=== PATIENT | female | born 1965 | race Caucasian/White ===

== ENCOUNTER 2018-09-02 11:26 | Observation (INO) | payer BC, OTHER ==
[~2018-09-02] VITALS: Ht 167.6 cm; Wt 77.1 kg
[~2018-09-02 11:26] MED LIST: BACL10TA PO; Celebrex PO; DIAZ5TAB3 PO; IBUP-16 PO; LEVOSTATIN PO; LORA10TA7 PO; LOVA10TA PO; LVT.1T PO; Levothyroxine PO; Lisinopril PO; MELO15TA39 PO; OMEP20CA12 PO; OXYC-272 PO; OXYC1TAB87 PO; PRM25T PO
--- OUTSIDE RECORDS SUMMARY | 2018-09-02 11:43 | XMS REPORT ---
Author Author Migration, Doctor Organization [facility] Address Unknown Phone Unavailable Care Team Providers Care Online Merchandising Specialist Name Role Phone Migration, Doctor Unavailable Unavailable PROBLEMS Type Condition ICD9-CM Code TPO05-ZA Code Onset Dates Condition Status SNOMED Code Problem Counseling on substance use and abuse V65.42 Active 467337915 Problem Headache 784.0 Active 71354933 Problem Encounter for long-term (current) use of other medications V58.69 Active 259778741 Problem Pain in joint, site unspecified 719.40 Active 91295017 Problem Bunion 727.1 Active 071829361 Problem Other specified menopausal and postmenopausal disorder 627.8 Active 983393110 Problem Obesity, unspecified 278.00 Active 449018195 Problem Pain in joint, shoulder region 719.41 Active 111704769 Problem Viral warts, unspecified 078.10 Active 75789115 Problem Pain in joint, ankle and foot 719.47 Active 013584653 Problem Esophageal reflux 530.81 Active 419133833 Problem Acute bronchitis 466.0 Active 01417294 Problem Carbuncle and furuncle of trunk 680.2 Active 96629584 Problem Other diseases of nasal cavity and sinuses 478.19 Active [id number] ALLERGIES No Information ENCOUNTERS Encounter Location Date Diagnosis [place] [address] [address] Feb, [place] [id number] [place] [address] 02 Nov, 2014 Acute renal insufficiency 593.9 [place] [address] [place] [id number] [place] [address] 2174 Nov, Hyperkalemia 276.7 and Acute renal insufficiency 593.9 [place] [address] [place] [id number] [place] [address] 4459 October, Hyperkalemia 276.7 and Acute renal insufficiency 593.9 [place] [address] [id number] [place] [address] October, Diarrhea 787.91 [facility] [place] [facility] [address] [id number] [place] [address] 14 Sep, 2014 [facility] [place] [facility] [address] [id number] [place] [address] Sep, [facility] [place] [facility] [address] [id number] [place] [address] 4531 Aug, [facility] [place] [facility] [address] [id number] [place] [address] 1835 Aug, [facility] [place] [facility] [address] [id number] [place] [address] 1587 May, [facility] [place] [facility] [address] [facility] [id number] [place] [address] 6823 May, [facility] [address] [id number] [place] [address] 8527 May, [facility] [place] [facility] [address] [id number] [place] [address] 7907 May, [facility] [place] [facility] [address] [facility] [id number] [place] [address] 8654 Feb, [facility] [place] [facility] [address] [facility] [id number] [place] [address] 8119 Feb, [facility] [place] [facility] [address] [id number] [address] Feb, [facility] [place] [facility] [address] [id number] [place] [address] 3432 Feb, [facility] [place] [facility] [address] [id number] [place] [address]- 2832 Dec, [facility] [place] [facility] [address] [id number] [place] [address]- 3702 Dec, [facility] [place] [facility] [address] [id number] [address] 7[address] October, [facility] [address] [id number] [place] [address]- 7200 October, [facility] [place] [facility] [address] [id number] [place] [address]- 8932 Aug, [facility] [place] [facility] [address] [id number] [place] [address]- 3338 Aug, [facility] [place] [facility] [address] [id number] [place] [address]- 7063 May, [facility] [place] [facility] [address] [id number] [place] [address]- 1198 May, [facility] [place] [facility] [address] [id number] [place] [address]- 3216 Feb, [facility] [address] [id number] [place] [address]- 3913 Feb, [facility] [place] [facility] [address] [id number] [place] [address]- 8410 Sep, [facility] [address] [id number] [place] [address]- 9759 Jun, [facility] [place] [facility] [address] [id number] [place] [address]- 7447 May, [facility] [place] [facility] [address] [id number] [place] [address]- 5312 May, [facility] [place] [facility] [address] [id number] [place] [address]- 7376 May, [facility] [place] [facility] [address] [id number] [place] [address]- 4837 May, [facility] [place] [facility] [address] [id number] [place] [address]- 2359 Apr, [facility] [place] [facility] [address] [id number] [place] [address]- 8395 Apr, [facility] [place] [facility] [address] [id number] [place] [address] 2546 Apr, [facility] [place] [facility] [address] [id number] [place] [address]- 3452 Apr, [facility] [place] [facility] [address] [id number] [place] [address] 2546 Feb, [facility] [place] [facility] [address] [id number] [place] [address] 2546 Jan, [facility] [place] [facility] [address] [id number] [place] [address]- 2546 Jan, [facility] [place] [facility] [address] [id number] [place] [address]- 9533 Dec, [facility] [place] [facility] [address] [id number] [place] [address]- 7686 Nov, [facility] [place] [facility] [address] [id number] [place] [address]- 6238 Nov, [facility] [address] [id number] [place] [address]- 9714 October, [facility] [place] [facility] [address] [id number] [place] [address]- 3989 Sep, [facility] [place] [facility] [address] [id number] [place] [address]- 2107 Sep, [facility] [place] [facility] [address] [id number] [place] [address]- 2571 Sep, [facility] [place] [facility] [address] [id number] [place] [address]- 4519 Aug, [facility] [place] [facility] [address] [id number] [place] [address]- 5452 Aug, [facility] [place] [facility] [address] [id number] [place] [address] 2546 Aug, [facility] [place] [facility] [address] [id number] [place] [address]- 4345 Aug, [facility] [place] [facility] [address] [id number] [place] [address]- 5374 Aug, [facility] [place] [facility] [address] [id number] [place] [address]- 0272 Aug, [facility] [place] [facility] [address] [id number] [place] [address]- 7842 Jul, [facility] [place] [facility] [address] [id number] [place] [address]- 7616 Jul, [facility] [place] [facility] [address] [id number] [place] [address]- 5765 Jun, [facility] [place] [facility] [address] [id number] [place] [address]- 0200 May, [facility] [place] [facility] [address] [id number] [place] [address]- 6037 Dec, [facility] [place] [facility] [address] [id number] [place] [address]- 8210 Sep, [facility] [place] [facility] [address] [id number] [place] [address]- 2903 Aug, [facility] [place] [facility] [address] [id number] [place] [address]- 7686 Mar, [facility] [place] [facility] [address] [id number], [place] [address]- 2445 Mar, [facility] [place] [facility] [address] [id number] [address]- 1126 15 Aug, 2009 [facility] [place] [facility] [address] [id number] [place] [address]- 0601 Apr, [facility] [place] [facility] [address] [id number] [address]- 4058 16 Mar, 2009 [facility] [place] [facility] [address] [id number] [place] [address]- 2852 16 Mar, 2009 [facility] [place] [facility] [address] [facility] [id number] [place] [address]- 9834 Mar, [facility] [address] [facility] [id number] [place] [address]- 1116 Jan, [facility] [address] [facility] [id number] [place] [address]- 7246 Jan, IMMUNIZATIONS No Known Immunizations SOCIAL HISTORY Never Assessed REASON FOR VISIT EMR-[facility] PLAN OF CARE VITAL SIGNS MEDICATIONS Unknown Medications RESULTS No Results PROCEDURES No Known procedures INSTRUCTIONS MEDICATIONS ADMINISTERED No Known Medications MEDICAL (GENERAL) HISTORY Type Description Date Medical History Hypothyroidism Medical History migraine headaches Medical History hypertension Medical History allergic rhinitis Medical History chronic pain Medical History hyperlipidemia Medical History obesity Medical History gastroesophageal reflux disease (GERD)
--- OUTSIDE RECORDS SUMMARY | 2018-09-02 11:43 | XMS REPORT ---
Author Author Migration, Doctor Organization [facility] Address Unknown Phone Unavailable Care Team Providers Care River Guide Name Role Phone Migration, Doctor Unavailable Unavailable PROBLEMS Type Condition ICD9-CM Code LZL35-MD Code Onset Dates Condition Status SNOMED Code Problem Counseling on substance use and abuse V65.42 Active 709445664 Problem Headache 784.0 Active 95280217 Problem Encounter for long-term (current) use of other medications V58.69 Active 300098138 Problem Pain in joint, site unspecified 719.40 Active 49859711 Problem Bunion 727.1 Active 483438962 Problem Other specified menopausal and postmenopausal disorder 627.8 Active 812038313 Problem Obesity, unspecified 278.00 Active 959740725 Problem Pain in joint, shoulder region 719.41 Active 497544471 Problem Viral warts, unspecified 078.10 Active 01259151 Problem Pain in joint, ankle and foot 719.47 Active 538002160 Problem Esophageal reflux 530.81 Active 244344995 Problem Acute bronchitis 466.0 Active 53946616 Problem Carbuncle and furuncle of trunk 680.2 Active 87115803 Problem Other diseases of nasal cavity and sinuses 478.19 Active 935110128 ALLERGIES No Information ENCOUNTERS Encounter Location Date Diagnosis [place] [address] [address] Feb, [place] [address] [place] [address]- [address] 02 Nov, 2014 Acute renal insufficiency 593.9 [place] [address] [place] [id number] [place] [address]- 9182 Nov, Hyperkalemia 276.7 and Acute renal insufficiency 593.9 [place] [address] [place] [id number] [place] [address]- 3130 October, Hyperkalemia 276.7 and Acute renal insufficiency 593.9 [place] [address] [id number] [place] [address]- 8163 October, Diarrhea 787.91 [facility] [place] [facility] [address] [id number] [place] [address]- 3736 14 Sep, 2014 [facility] [place] [facility] [address] [id number] [place] [address]- 4099 Sep, [facility] [place] [facility] [address] [id number] [place] [address]- 7116 Aug, [facility] [place] [facility] [address] [id number] [place] [address]- 9983 Aug, [facility] [place] [facility] [address] [id number] [place] [address]- 7278 May, [facility] [place] [facility] [address] [facility] [id number] [place] [address]- 8146 May, [facility] [address] [id number] [place] [address]- 7319 May, [facility] [place] [facility] [address] [id number] [place] [address]- 8376 May, [facility] [place] [facility] [address] [facility] [id number] [place] [address]- 8838 Feb, [facility] [place] [facility] [address] [facility] [id number] [place] [address]- 5010 Feb, [facility] [place] [facility] [address] [id number], [place] [address]- 0970 Feb, [facility] [place] [facility] [address] [id number] [place] [address]- 2628 Feb, [facility] [place] [facility] [address] [id number] [place] [address]- 0141 Dec, [facility] [place] [facility] [address] [id number] [place] [address]- 0238 Dec, [facility] [place] [facility] [address] [id number], [place] [address]- 5319 October, [facility] [address] [id number] [place] [address]- 2952 October, [facility] [place] [facility] [address] [id number] [place] [address]- 0930 Aug, [facility] [place] [facility] [address] [id number] [place] [address]- 5273 Aug, [facility] [place] [facility] [address] [id number] [place] [address]- 0018 May, [facility] [place] [facility] [address] [id number] [place] [address]- 2906 May, [facility] [place] [facility] [address] [id number] [place] [address]- 9480 Feb, [facility] [address] [id number] [place] [address]- 0210 Feb, [facility] [place] [facility] [address] [id number] [place] [address]- 9215 Sep, [facility] [address] [id number] [place] [address]- 0353 Jun, [facility] [place] [facility] [address] [id number] [place] [address]- 6748 May, [facility] [place] [facility] [address] [id number] [place] [address]- 0670 May, [facility] [place] [facility] [address] [id number] [place] [address]- 5939 May, [facility] [place] [facility] [address] [id number] [place] [address]- 8376 May, [facility] [place] [facility] [address] [id number] [place] [address]- 2785 Apr, [facility] [place] [facility] [address] [id number] [place] [address]- 4787 Apr, [facility] [place] [facility] [address] [id number] [place] [address] 2546 Apr, [facility] [place] [facility] [address] [id number] [place] [address]- 7260 Apr, [facility] [place] [facility] [address] [id number] [place] [address] 2546 Feb, [facility] [place] [facility] [address] [id number] [place] [address] 2546 Jan, [facility] [place] [facility] [address] [id number] [place] [address]- 2546 Jan, [facility] [place] [facility] [address] [id number] [place] [address]- 7615 Dec, [facility] [place] [facility] [address] [id number] [place] [address]- 2276 Nov, [facility] [place] [facility] [address] [id number] [place] [address]- 6169 Nov, [facility] [address] [id number] [place] [address]- 4401 October, [facility] [place] [facility] [address] [id number] [place] [address]- 4378 Sep, [facility] [place] [facility] [address] [id number] [place] [address]- 5296 Sep, [facility] [place] [facility] [address] [id number] [place] [address]- 2247 Sep, [facility] [place] [facility] [address] [id number] [place] [address]- 4119 Aug, [facility] [place] [facility] [address] [id number] [place] [address]- 8365 Aug, [facility] [place] [facility] [address] [id number] [place] [address] 2546 Aug, [facility] [place] [facility] [address] [id number] [place] [address]- 8193 Aug, [facility] [place] [facility] [address] [id number] [place] [address]- 2237 Aug, [facility] [place] [facility] [address] [id number] [place] [address]- 1044 Aug, [facility] [place] [facility] [address] [id number] [place] [address]- 2086 Jul, [facility] [place] [facility] [address] [id number] [place] [address]- 2167 Jul, [facility] [place] [facility] [address] [id number] [place] [address]- 4654 Jun, [facility] [place] [facility] [address] [id number] [place] [address]- 0448 May, [facility] [place] [facility] [address] [id number] [place] [address]- 5637 Dec, [facility] [place] [facility] [address] [id number] [place] [address]- 0534 Sep, [facility] [place] [facility] [address] [id number] [place] [address]- 5443 Aug, [facility] [place] [facility] [address] [id number] [place] [address]- 1714 Mar, [facility] [place] [facility] [address] [id number], [place] [address]- 6193 Mar, [facility] [place] [facility] [address] [id number], [place] [address]- 8233 15 Aug, 2009 [facility] [place] [facility] [address] [id number] [place] [address]- 0344 Apr, [facility] [place] [facility] [address] [id number], [place] [address]- 1807 16 Mar, 2009 [facility] [place] [facility] [address] [id number] [place] [address]- 9442 16 Mar, 2009 [facility] [place] [facility] [address] [facility] [id number] [place] [address]- 1737 Mar, [facility] [address] [facility] [id number] [place] [address]- 5860 Jan, [facility] [address] [facility] [id number] [place] [address]- 4083 Jan, IMMUNIZATIONS No Known Immunizations SOCIAL HISTORY Never Assessed REASON FOR VISIT [place] [place] OF CARE VITAL SIGNS MEDICATIONS Unknown [...]
--- OUTSIDE RECORDS SUMMARY | 2018-09-02 11:44 | XMS REPORT ---
Author AMARI Hayes [facility] eClinicalWorks Address Unknown Phone Unavailable Care Team Providers Care Children'S Choir Director Name Role Phone AMARI ENAMORADO CP Unavailable Allergies No Known Allergies Problems Problem Type Condition ICD-9 Code Onset Dates Condition Status Problem Headache 784.0 Active Problem Bunion 727.1 Active Problem Esophageal reflux 530.81 Active Problem Pain in joint, shoulder region 719.41 Active Problem Pain in joint, site unspecified 719.40 Active Problem Carbuncle and furuncle of trunk 680.2 Active Problem Viral warts, unspecified 078.10 Active Problem Counseling on substance use and abuse V65.42 Active Problem Encounter for long-term (current) use of other medications V58.69 Active Problem Acute bronchitis 466.0 Active Problem Other diseases of nasal cavity and sinuses 478.19 Active Problem Obesity, unspecified 278.00 Active Problem Other specified menopausal and postmenopausal disorder 627.8 Active Problem Pain in joint, ankle and foot 719.47 Active Medications Medication Code System Code Instructions Start Date End Date Status Dosage Loratadine [facility] [address]-97 10 MG Est Care appt needed for additional refills Feb 09, 2014 take 1 tablet by Oral route 1 time per day take at hs Lisinopril [facility] [address]-69 20 MG Once a day- Est Care appt needed for additonal refills. Feb 09, 2014 1 tablet by Oral route 1 time per day Lovastatin [facility] [address]-48 10 MG Est Care appt needed for additional refills. Feb 09, 2014 1 tablet by Oral route 1 time per day Results No Known Results Summary Purpose eClinicalWorks Submission
--- OUTSIDE RECORDS SUMMARY | 2018-09-02 11:45 | XMS REPORT | Continuity of Care Document ---
Author Author [facility] Address Unknown Phone Unavailable Allergies Active Description Code Type Severity Reaction Onset Reported/Identified Relationship to Patient Clinical Status Yes hydrocodone Drug Allergy N/A N/A 07/24/2008 Yes hydrocodone Drug Allergy 07/24/2008 Yes codeine Drug Allergy N/A N/A 10/01/2008 Yes Penicillins Drug Allergy N/A N/A 10/01/2008 Yes codeine Drug Allergy 10/01/2008 Yes Penicillins Drug Allergy 10/01/2008 Yes Celexa Drug Allergy N/A N/A 09/13/2010 Yes Celexa Drug Allergy 09/13/2010 Yes codeine [id number] Drug Allergy Mild N/A 12/18/2011 Yes Penicillins [id number] Drug Allergy Mild N/A 12/18/2011 Medications There is no data. 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 12/05/2007 AMARI ENAMORADO DO 739.4 NONALLOPATHIC LESIONS OF SACRAL 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 12/05/2007 AMARI ENAMORADO DO 780.79 lethargy 12/05/2007 739.3 NONALLOPATHIC LESIONS OF LUMBAR 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 12/05/2007 739.4 NONALLOPATHIC LESIONS OF SACRAL 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 12/05/2007 780.79 lethargy 12/05/2007 CELSA SANCHEZ APRN 739.3 NONALLOPATHIC LESIONS OF LUMBAR 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 12/05/2007 CELSA SANCHEZ APRN 739.4 NONALLOPATHIC LESIONS OF SACRAL 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 12/05/2007 CELSA SANCHEZ APRN N 780.79 lethargy 12/05/2007 AKASH CASTELLON APRNINA R 739.3 NONALLOPATHIC LESIONS OF LUMBAR 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 12/05/2007 CANDE SAHNI APOLINAR R 739.4 NONALLOPATHIC LESIONS OF SACRAL 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 12/05/2007 CANDE SAHNI APOLINAR R 780.79 lethargy 12/05/2007 ENAMORADO DO, AMARI K 739.3 NONALLOPATHIC LESIONS OF LUMBAR 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 12/05/2007 ENAMORADO DO, AMARI K 739.4 NONALLOPATHIC LESIONS OF SACRAL 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 12/05/2007 ENAMORADO DO, AMARI K 780.79 lethargy 12/05/2007 ENAMORADO DO, AMARI K 739.3 NONALLOPATHIC LESIONS OF LUMBAR 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 12/05/2007 ENAMORADO DO, AMARI K 739.4 NONALLOPATHIC LESIONS OF SACRAL 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 12/05/2007 ENAMORADO DO, AMARI K 780.79 lethargy 12/05/2007 ENAMORADO DO, AMARI K 739.3 NONALLOPATHIC LESIONS OF LUMBAR 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 12/05/2007 ENAMORADO DO, AMARI K 739.4 NONALLOPATHIC LESIONS OF SACRAL 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 12/05/2007 ENAMORADO DO, AMARI K 780.79 lethargy 12/05/2007 ENAMORADO DO, AMARI K 739.3 NONALLOPATHIC LESIONS OF LUMBAR 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9 HYPOTHYROIDISM 05/14/2008 ENAMORADO DO, AMARI K 719.45 Pain In Joint Involving Pelvic Region And Thigh 05/14/2008 ENAMORADO DO, AMARI K 719.45 Pain In Joint Involving Pelvic Region And Thigh 05/14/2008 719.45 Pain In Joint Involving Pelvic Region And Thigh 05/14/2008 CELSA SANCHEZ APRN N 719.45 Pain In Joint Involving Pelvic Region And Thigh 05/14/2008 CANDE SAHNI APOLINAR R 719.45 Pain In Joint Involving Pelvic Region And Thigh 05/14/2008 ENAMORADO DO, AMARI K 719.45 Pain In Joint Involving Pelvic Region And Thigh 05/14/2008 ENAMORADO DO, AMARI K 719.45 Pain In Joint Involving Pelvic Region And Thigh 05/14/2008 ENAMORADO DO, AMARI K 719.45 Pain In Joint Involving Pelvic Region And Thigh 05/14/2008 ENAMORADO DO, AMARI K 719.45 Pain In Joint Involving Pelvic Region And Thigh 10/01/2008 ENAMORADO DO, AMARI K 401.9 ESSENTIAL HYPERTENSION 10/01/2008 ENAMORADO DO, AMARI K 401.9 ESSENTIAL HYPERTENSION 10/01/2008 401.9 ESSENTIAL HYPERTENSION 10/01/2008 SALONI SANCHEZ APRNCY N 401.9 ESSENTIAL HYPERTENSION 10/01/2008 AKASH CASTELLON APRNINA R 401.9 ESSENTIAL HYPERTENSION 10/01/2008 ENAMORADO DO, AMARI K 401.9 ESSENTIAL HYPERTENSION 10/01/2008 ENAMORADO DO, AMARI K 401.9 ESSENTIAL HYPERTENSION 10/01/2008 ENAMORADO DO, AMARI K 401.9 ESSENTIAL HYPERTENSION 10/01/2008 ENAMORADO DO, AMARI K 401.9 ESSENTIAL HYPERTENSION 11/10/2008 ENAMORADO DO, AMARI K 477.9 ALLERGIC RHINITIS 11/10/2008 ENAMORADO DO, AMARI K 477.9 ALLERGIC RHINITIS 11/10/2008 477.9 ALLERGIC RHINITIS 11/10/2008 SALONI SANCHEZ APRNCY N 477.9 ALLERGIC RHINITIS 11/10/2008 CANDE SAHNI APOLINAR R 477.9 ALLERGIC RHINITIS 11/10/2008 ENAMORADO DO, AMARI K 477.9 ALLERGIC RHINITIS 11/10/2008 ENAMORADO DO, AMARI K 477.9 ALLERGIC RHINITIS 11/10/2008 ENAMORADO DO, AMARI K 477.9 ALLERGIC RHINITIS 11/10/2008 ENAMORADO DO, AMARI K 477.9 ALLERGIC RHINITIS 12/02/2008 ENAMORADO DO, AMARI K 782.2 Localized Superficial Swelling Mass Or Lump 12/02/2008 ENAMORADO DO, AMARI K 782.2 Localized Superficial Swelling Mass Or Lump 12/02/2008 782.2 Localized Superficial Swelling Mass Or Lump 12/02/2008 PAUL DRAPER APRN, CELSA N 782.2 Localized Superficial Swelling Mass Or Lump 12/02/2008 AKASH CASTELLON APRNINA R 782.2 Localized Superficial Swelling Mass Or Lump 12/02/2008 ENAMORADO DO, AMARI K 782.2 Localized Superficial Swelling Mass Or Lump 12/02/2008 ENAMORADO DO, AMARI K 782.2 Localized Superficial Swelling Mass Or Lump 12/02/2008 ENAMORADO DO, AMARI K 782.2 Localized Superficial Swelling Mass Or Lump 12/02/2008 ENAMORADO DO, AMARI K 782.2 Localized Superficial Swelling Mass Or Lump 01/18/2009 ENAMORADO DO, AMARI K 338.2 CHRONIC PAIN 01/18/2009 ENAMORADO DO, AMARI K V58.32 Encounter For Removal Of Sutures 01/18/2009 ENAMORADO DO, AMARI K 338.2 CHRONIC PAIN 01/18/2009 ENAMORADO DO, AMARI K V58.32 Encounter For Removal Of Sutures 01/18/2009 338.2 CHRONIC PAIN 01/18/2009 V58.32 Encounter For Removal Of Sutures 01/18/2009 CELSA SANCHEZ APRN N 338.2 CHRONIC PAIN 01/18/2009 CELSA SANCHEZ APRN N V58.32 Encounter For Removal Of Sutures 01/18/2009 APOLINAR CASTELLON APRN R 338.2 CHRONIC PAIN 01/18/2009 AKASH CASTELLON APRNINA R V58.32 Encounter For Removal Of Sutures 01/18/2009 ENAMORADO DO, AMARI K 338.2 CHRONIC PAIN 01/18/2009 ENAMORADO DO, AMARI K V58.32 Encounter For Removal Of Sutures 01/18/2009 ENAMORADO DO, AMARI K 338.2 CHRONIC PAIN 01/18/2009 ENAMORADO DO, AMARI K V58.32 Encounter For Removal Of Sutures 01/18/2009 ENAMORADO DO, AMARI K 338.2 CHRONIC PAIN 01/18/2009 ENAMORADO DO, AMARI K V58.32 Encounter For Removal Of Sutures 01/18/2009 ENAMORADO DO, AMARI K 338.2 CHRONIC PAIN 01/18/2009 ENAMORADO DO, AMARI K V58.32 Encounter For Removal Of Sutures 03/04/2009 ENAMORADO DO, AMARI K 787.01 Nausea With Vomiting 03/04/2009 ENAMORADO DO, AMARI K 787.91 Diarrhea 03/04/2009 ENAMORADO DO, AMARI K V15.05 OTHER PERSONAL HISTORY PRESENTING HAZARDS TO HEALTH, ALLERGY TO OTHER FOODS 03/04/2009 ENAMORADO DO, AMARI K 787.01 Nausea With Vomiting 03/04/2009 ENAMORADO DO, AMARI K 787.91 Diarrhea 03/04/2009 ENAMORADO DO, AMARI K V15.05 OTHER PERSONAL HISTORY PRESENTING HAZARDS TO HEALTH, ALLERGY TO OTHER FOODS 03/04/2009 787.01 Nausea With Vomiting 03/04/2009 787.91 Diarrhea 03/04/2009 V15.05 OTHER PERSONAL HISTORY PRESENTING HAZARDS TO HEALTH, ALLERGY TO OTHER FOODS 03/04/2009 PAUL DRAPER MANAGER PROGRESSIVE CARE, CELSA N 787.01 Nausea With Vomiting 03/04/2009 PAUL DRAPER MANAGER PROGRESSIVE CARE, CELSA N 787.91 Diarrhea 03/04/2009 PAUL JENSENERO MANAGER PROGRESSIVE CARE, CELSA N V15.05 OTHER PERSONAL HISTORY PRESENTING HAZARDS TO HEALTH, ALLERGY TO OTHER FOODS 03/04/2009 CANDE MANAGER PROGRESSIVE CARE, APOLINAR R 787.01 Nausea With Vomiting 03/04/2009 CANDE MANAGER PROGRESSIVE CARE, APOLINAR R 787.91 Diarrhea 03/04/2009 CANDE MANAGER PROGRESSIVE CARE, APOLINAR R V15.05 OTHER PERSONAL HISTORY PRESENTING HAZARDS TO HEALTH, ALLERGY TO OTHER FOODS 03/04/2009 ENAMORADO DO, AMARI K 787.01 Nausea With Vomiting 03/04/2009 ENAMORADO DO, AMARI K 787.91 Diarrhea 03/04/2009 ENAMORADO DO, AMARI K V15.05 OTHER PERSONAL HISTORY PRESENTING HAZARDS TO HEALTH, ALLERGY TO OTHER FOODS 03/04/2009 ENAMORADO DO, AMARI K 787.01 Nausea With Vomiting 03/04/2009 ENAMORADO DO, AMARI K 787.91 Diarrhea 03/04/2009 ENAMORADO DO, AMARI K V15.05 OTHER PERSONAL HISTORY PRESENTING HAZARDS TO HEALTH, ALLERGY TO OTHER FOODS 03/04/2009 ENAMORADO DO, AMARI K 787.01 Nausea With Vomiting 03/04/2009 ENAMORADO DO, AMARI K 787.91 Diarrhea 03/04/2009 ENAMORADO DO, AMARI K V15.05 OTHER PERSONAL HISTORY PRESENTING HAZARDS TO HEALTH, ALLERGY TO OTHER FOODS 03/04/2009 ENAMORADO DO, AMARI K 787.01 Nausea With Vomiting 03/04/2009 ENAMORADO DO, AMARI K 787.91 Diarrhea 03/04/2009 ENAMORADO DO, AMARI K V15.05 OTHER PERSONAL HISTORY PRESENTING HAZARDS TO HEALTH, ALLERGY TO OTHER FOODS 03/19/2009 ENAMORADO DO, AMARI K 780.2 Fainting (syncope) 03/19/2009 ENAMORADO DO, AMARI K 780.2 Fainting (syncope) 03/19/2009 780.2 Fainting ( syncope) 03/19/2009 PAUL DRAPER APRN CELSA N 780.2 Fainting (syncope) 03/19/2009 CANDE PITTMANN, APOLINAR R 780.2 Fainting (syncope) 03/19/2009 ENAMORADO DO, AMARI K 780.2 Fainting (syncope) 03/19/2009 ENAMORADO DO, AMARI K 780.2 Fainting (syncope) 03/19/2009 ENAMORADO DO, AMARI K 780.2 Fainting (syncope) 03/19/2009 ENAMORADO DO, AMARI K 780.2 Fainting (syncope) 08/05/2009 ENAMORADO DO, AMARI K 461.8 RHINOSINUSITIS 08/05/2009 ENAMORADO DO, AMARI K 461.8 RHINOSINUSITIS 08/05/2009 461.8 RHINOSINUSITIS 08/05/2009 PAUL DRAPER APRN, CELSA N 461.8 RHINOSINUSITIS 08/05/2009 CANDE PITTMANN, APOLINAR R 461.8 RHINOSINUSITIS 08/05/2009 ENAMORADO DO, AMARI K 461.8 RHINOSINUSITIS 08/05/2009 ENAMORADO DO, AMARI K 461.8 RHINOSINUSITIS 08/05/2009 ENAMORADO DO, AMARI K 461.8 RHINOSINUSITIS 08/05/2009 ENAMORADO DO, AMARI K 461.8 RHINOSINUSITIS 08/06/2009 ENAMORADO DO, AMARI K 272.4 HYPERLIPIDEMIA 08/06/2009 ENAMORADO DO, AMARI K 272.4 HYPERLIPIDEMIA 08/06/2009 272.4 HYPERLIPIDEMIA 08/06/2009 PAUL DRAPER APRN, CELSA N 272.4 HYPERLIPIDEMIA 08/06/2009 CANDE SAHNI APOLINAR R 272.4 HYPERLIPIDEMIA 08/06/2009 ENAMORADO DO, AMARI K 272.4 HYPERLIPIDEMIA 08/06/2009 ENAMORADO DO, AMARI K 272.4 HYPERLIPIDEMIA 08/06/2009 ENAMORADO DO, AMARI K 272.4 HYPERLIPIDEMIA 08/06/2009 ENAMORADO DO, AMARI K 272.4 HYPERLIPIDEMIA 08/16/2009 ENAMORADO DO, AMARI K 462 Pharyngitis Acute 08/16/2009 ENAMORADO DO, AMARI K 462 Pharyngitis Acute 08/16/2009 462 Pharyngitis Acute 08/16/2009 PAUL DRAPER APRN, CELSA N 462 Pharyngitis Acute 08/16/2009 CANDE MANAGER PROGRESSIVE CARE, APOLINAR R 462 Pharyngitis Acute 08/16/2009 ENAMORADO DO, AMARI K 462 Pharyngitis Acute 08/16/2009 ENAMORADO DO, AMARI K 462 Pharyngitis Acute 08/16/2009 ENAMORADO DO, AMARI K 462 Pharyngitis Acute 08/16/2009 ENAMORADO DO, AMARI K 462 Pharyngitis Acute 09/08/2009 ENAMORADO DO, AMARI K 786.2 Cough 09/08/2009 ENAMORADO DO, AMARI K 786.2 Cough 09/08/2009 786.2 Cough 09/08/2009 PAUL DRAPER MANAGER PROGRESSIVE CARE, CELSA N 786.2 Cough 09/08/2009 CANDE MANAGER PROGRESSIVE CARE, APOLINAR R 786.2 Cough 09/08/2009 ENAMORADO DO, AMARI K 786.2 Cough 09/08/2009 ENAMORADO DO, AMARI K 786.2 Cough 09/08/2009 ENAMORADO DO, AMARI K 786.2 Cough 09/08/2009 ENAMORADO DO, AMARI K 786.2 Cough 03/08/2010 ENAMORADO DO, AMARI K 729.5 Pain In Limb 03/08/2010 ENAMORADO DO, AMARI K 729.5 Pain In Limb 03/08/2010 729.5 Pain In Limb 03/08/2010 PAUL DRAPER MANAGER PROGRESSIVE CARE, CELSA N 729.5 Pain In Limb 03/08/2010 CANDE MANAGER PROGRESSIVE CARE, APOLINAR R 729.5 Pain In Limb 03/08/2010 ENAMORADO DO, AMARI K 729.5 Pain In Limb 03/08/2010 ENAMORADO DO, AMARI K 729.5 Pain In Limb 03/08/2010 ENAMORADO DO, AMARI K 729.5 Pain In Limb 03/08/2010 ENAMORADO DO, AMARI K 729.5 Pain In Limb 03/16/2010 ENAMORADO DO, AMARI K 780.4 Dizziness And Giddiness 03/16/2010 ENAMORADO DO, AMARI K 780.4 Dizziness And Giddiness 03/16/2010 780.4 Dizziness And Giddiness 03/16/2010 CELSA SANCHEZ APRN N 780.4 Dizziness And Giddiness 03/16/2010 AKASH CASTELLON APRNINA R 780.4 Dizziness And Giddiness 03/16/2010 ENAMORADO DO, AMARI K 780.4 Dizziness And Giddiness 03/16/2010 ENAMORADO DO, AMARI K 780.4 Dizziness And Giddiness 03/16/2010 ENAMORADO DO, AMARI K 780.4 Dizziness And Giddiness 03/16/2010 ENAMORADO DO, AMARI K 780.4 Dizziness And Giddiness 06/10/2010 ENAMORADO DO, AMARI K 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 06/10/2010 ENAMORADO DO, AMARI K 757.39 Porokerotosis 06/10/2010 ENAMORADO DO, AMARI K 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 06/10/2010 ENAMORADO DO, AMARI K 757.39 Porokerotosis 06/10/2010 355.6 NEUROMA/ METATARSALGIA 06/10/2010 757.39 Porokerotosis 06/10/2010 CELSA SANCHEZ APRN N 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 06/10/2010 CELSA SANCHEZ APRN N 757.39 Porokerotosis 06/10/2010 AKASH CASTELLON APRNINA R 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 06/10/2010 AKASH CASTELLON APRNINA R 757.39 Porokerotosis 06/10/2010 ENAMORADO DO, AMARI K 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 06/10/2010 ENAMORADO DO, AMARI K 757.39 Porokerotosis 06/10/2010 ENAMORADO DO, AMARI K 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 06/10/2010 ENAMORADO DO, AMARI K 757.39 Porokerotosis 06/10/2010 ENAMORADO DO, AMARI K 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 06/10/2010 ENAMORADO DO, AMARI K 757.39 Porokerotosis 06/10/2010 ENAMORADO DO, AMARI K 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 06/10/2010 ENAMORADO DO, AMARI K 757.39 Porokerotosis 08/16/2010 ENAMORADO DO, AMARI K 626.4 IRREGULAR MENSTRUAL CYCLE 08/16/2010 ENAMORADO DO, AMARI K 627.0 PREMENOPAUSAL MENORRHAGIA 08/16/2010 ENAMORADO DO, AMARI K 799.22 Irritability 08/16/2010 ENAMORADO DO, AMARI K 626.4 IRREGULAR MENSTRUAL CYCLE 08/16/2010 ENAMORADO DO, AMARI K 627.0 PREMENOPAUSAL MENORRHAGIA 08/16/2010 ENAMORADO DO, AMARI K 799.22 Irritability 08/16/2010 626.4 IRREGULAR MENSTRUAL CYCLE 08/16/2010 627.0 PREMENOPAUSAL MENORRHAGIA 08/16/2010 799.22 Irritability 08/16/2010 CELSA SANCHEZ APRN N 626.4 IRREGULAR MENSTRUAL CYCLE 08/16/2010 SALONI SANCHEZ APRNCY N 627.0 PREMENOPAUSAL MENORRHAGIA 08/16/2010 SALONI SANCHEZ APRNCY N 799.22 Irritability 08/16/2010 CANDE MANAGER PROGRESSIVE CARE, APOLINAR R 626.4 IRREGULAR MENSTRUAL CYCLE 08/16/2010 CANDE MANAGER PROGRESSIVE CARE, APOLINAR R 627.0 PREMENOPAUSAL MENORRHAGIA 08/16/2010 CANDE MANAGER PROGRESSIVE CARE, APOLINAR R 799.22 Irritability 08/16/2010 ENAMORADO DO, AMARI K 626.4 IRREGULAR MENSTRUAL CYCLE 08/16/2010 ENAMORADO DO, AMARI K 627.0 PREMENOPAUSAL MENORRHAGIA 08/16/2010 ENAMORADO DO, AMARI K 799.22 Irritability 08/16/2010 ENAMORADO DO, AMARI K 626.4 IRREGULAR MENSTRUAL CYCLE 08/16/2010 ENAMORADO DO, AMARI K 627.0 PREMENOPAUSAL MENORRHAGIA 08/16/2010 ENAMORADO DO, AMARI K 799.22 Irritability 08/16/2010 ENAMORADO DO, AMARI K 626.4 IRREGULAR MENSTRUAL CYCLE 08/16/2010 ENAMORADO DO, AMARI K 627.0 PREMENOPAUSAL MENORRHAGIA 08/16/2010 ENAMORADO DO, AMARI K 799.22 Irritability 08/16/2010 ENAMORADO DO, AMARI K 626.4 IRREGULAR MENSTRUAL CYCLE 08/16/2010 ENAMORADO DO, AMARI K 627.0 PREMENOPAUSAL MENORRHAGIA 08/16/2010 EANMORADO DO, AMARI K 799.22 Irritability 09/13/2010 ENAMORADO DO, AMARI K 268.9 UNSPECIFIED VITAMIN D DEFICIENCY 09/13/2010 ENAMORADO DO, AMARI K 268.9 UNSPECIFIED VITAMIN D DEFICIENCY 09/13/2010 268.9 UNSPECIFIED VITAMIN D DEFICIENCY 09/13/2010 CELSA SANCHEZ APRN N 268.9 UNSPECIFIED VITAMIN D DEFICIENCY 09/13/2010 AKASH CASTELLON APRNINA R 268.9 UNSPECIFIED VITAMIN D DEFICIENCY 09/13/2010 ENAMORADO DO, AMARI K 268.9 UNSPECIFIED VITAMIN D DEFICIENCY 09/13/2010 ENAMORADO DO, AMARI K 268.9 UNSPECIFIED VITAMIN D DEFICIENCY 09/13/2010 ENAMORADO DO, AMARI K 268.9 UNSPECIFIED VITAMIN D DEFICIENCY 09/13/2010 ENAMORADO DO, AMARI K 268.9 UNSPECIFIED VITAMIN D DEFICIENCY 12/20/2010 ENAMORADO DO, AMARI K 473.9 Unspecified Sinusitis (chronic) 12/20/2010 ENAMORADO DO, AMARI K 473.9 Unspecified Sinusitis (chronic) 12/20/2010 473.9 Unspecified Sinusitis (chronic) 12/20/2010 CELSA SANCHEZ APRN N 473.9 Unspecified Sinusitis (chronic) 12/20/2010 CANDE SAHNI APOLINAR R 473.9 Unspecified Sinusitis (chronic) 12/20/2010 ENAMORADO DO, AMARI K 473.9 Unspecified Sinusitis (chronic) 12/20/2010 ENAMORADO DO, AMARI K 473.9 Unspecified Sinusitis (chronic) 12/20/2010 ENAMORADO DO, AMARI K 473.9 Unspecified Sinusitis (chronic) 12/20/2010 ENAMORADO DO, AMARI K 473.9 Unspecified Sinusitis (chronic) 08/02/2011 ENAMORADO DO, AMARI K 278.00 OBESITY UNSPECIFIED 08/02/2011 ENAMORADO DO, AMARI K 627.8 OTHER SPECIFIED MENOPAUSAL AND POSTMENOPAUSAL DISORDERS 08/02/2011 ENAMORADO DO, AMARI K 278.00 OBESITY UNSPECIFIED 08/02/2011 ENAMORADO DO, AMARI K 627.8 OTHER SPECIFIED MENOPAUSAL AND POSTMENOPAUSAL DISORDERS 08/02/2011 278.00 OBESITY UNSPECIFIED 08/02/2011 627.8 OTHER SPECIFIED MENOPAUSAL AND POSTMENOPAUSAL DISORDERS 08/02/2011 CELSA SANCHEZ APRN N 278.00 OBESITY UNSPECIFIED 08/02/2011 CELSA SANCHEZ APRN N 627.8 OTHER SPECIFIED MENOPAUSAL AND POSTMENOPAUSAL DISORDERS 08/02/2011 CANDE SAHNI APOLINAR R 278.00 OBESITY UNSPECIFIED 08/02/2011 CANDE PITTMANN, APOLINAR R 627.8 OTHER SPECIFIED MENOPAUSAL AND POSTMENOPAUSAL DISORDERS 08/02/2011 ENAMORADO DO, AMARI K 278.00 OBESITY UNSPECIFIED 08/02/2011 ENAMORADO DO, AMARI K 627.8 OTHER SPECIFIED MENOPAUSAL AND POSTMENOPAUSAL DISORDERS 08/02/2011 ENAMORADO DO, AMARI K 278.00 OBESITY UNSPECIFIED 08/02/2011 ENAMORADO DO, AMARI K 627.8 OTHER SPECIFIED MENOPAUSAL AND POSTMENOPAUSAL DISORDERS 08/02/2011 ENAMORADO DO, AMARI K 278.00 OBESITY UNSPECIFIED 08/02/2011 ENAMORADO DO, AMARI K 627.8 OTHER SPECIFIED MENOPAUSAL AND POSTMENOPAUSAL DISORDERS 08/02/2011 ENAMORADO DO, AMARI K 278.00 OBESITY UNSPECIFIED 08/02/2011 ENAMORADO DO, AMARI K 627.8 OTHER SPECIFIED MENOPAUSAL AND POSTMENOPAUSAL DISORDERS 11/07/2011 ENAMORADO DO, AMARI K 680.2 Carbuncle And Furuncle Of Trunk 11/07/2011 ENAMORADO DO, AMARI K 680.2 Carbuncle And Furuncle Of Trunk 11/07/2011 680.2 Carbuncle And Furuncle Of Trunk 11/07/2011 PAUL DRAPER APRN, CELSA N 680.2 Carbuncle And Furuncle Of Trunk 11/07/2011 APOLINAR CASTELLON APRN R 680.2 Carbuncle And Furuncle Of Trunk 11/07/2011 ENAMORADO DO, AMARI K 680.2 Carbuncle And Furuncle Of Trunk 11/07/2011 ENAMORADO DO, AMARI K 680.2 Carbuncle And Furuncle Of Trunk 11/07/2011 ENAMORADO DO, AMARI K 680.2 Carbuncle And Furuncle Of Trunk 11/07/2011 ENAMORADO DO, AMARI K 680.2 Carbuncle And Furuncle Of Trunk 12/20/2011 Ot 244.9 12/20/2011 Ot 272.4 12/20/2011 Ot 305.1 12/20/2011 Ot 401.9 12/20/2011 Ot 722.4 12/20/2011 Ot 782.2 12/20/2011 Ot 784.0 12/22/2011 ENAMORADO DO, AMARI K 784.0 HEADACHE 12/22/2011 ENAMORADO DO, AMARI K 784.0 HEADACHE 12/22/2011 784.0 HEADACHE 12/22/2011 CELSA SANCHEZ APRN N 784.0 HEADACHE 12/22/2011 AKASH CASTELLON APRNINA R 784.0 HEADACHE 12/22/2011 ENAMORADO DO, AMARI K 784.0 HEADACHE 12/22/2011 ENAMORADO DO, AMARI K 784.0 HEADACHE 12/22/2011 ENAMORADO DO, AMARI K 784.0 HEADACHE 12/22/2011 ENAMORADO DO, AMARI K 784.0 HEADACHE 05/11/2012 ENAMORADO DO, AMARI K 719.40 PAIN IN JOINT SITE UNSPECIFIED 05/11/2012 719.40 PAIN IN JOINT SITE UNSPECIFIED 05/11/2012 CELSA SANCHEZ APRN N 719.40 PAIN IN JOINT SITE UNSPECIFIED 05/11/2012 APOLINAR CASTELLON APRN R 719.40 PAIN IN JOINT SITE UNSPECIFIED 05/11/2012 ENAMORADO DO, AMARI K 719.40 PAIN IN JOINT SITE UNSPECIFIED 05/11/2012 ENAMORADO DO, AMARI K 719.40 PAIN IN JOINT SITE UNSPECIFIED 05/11/2012 ENAMORADO DO, AMARI K 719.40 PAIN IN JOINT SITE UNSPECIFIED 05/11/2012 ENAMORADO DO, AMARI K 719.40 PAIN IN JOINT SITE UNSPECIFIED 02/12/2013 530.81 GERD 02/12/2013 CELSA SANCHEZ APRN N 530.81 GERD 02/12/2013 APOLINAR CASTELLON APRN R 530.81 GERD 02/12/2013 ENAMORADO DO, AMARI K 530.81 GERD 02/12/2013 ENAMORADO DO, AMARI K 530.81 GERD 02/12/2013 ENAMORADO DO, AMARI K 530.81 GERD 02/12/2013 ENAMORADO DO, AMARI K 530.81 GERD 06/03/2013 CELSA SANCHEZ APRN N 478.19 OTHER DISEASES OF NASAL CAVITY AND SINUSES 06/03/2013 APOLINAR CASTELLON APRN R 478.19 OTHER DISEASES OF NASAL CAVITY AND SINUSES 06/03/2013 ENAMORADO DO, AMARI K 478.19 OTHER DISEASES OF NASAL CAVITY AND SINUSES 06/03/2013 ENAMORADO DO, AMARI K 478.19 OTHER DISEASES OF NASAL CAVITY AND SINUSES 06/03/2013 ENAMORADO DO, AMARI K 478.19 OTHER DISEASES OF NASAL CAVITY AND SINUSES 06/03/2013 ENAMORADO DO, AMARI K 478.19 OTHER DISEASES OF NASAL CAVITY AND SINUSES 08/07/2013 CANDE MANAGER PROGRESSIVE CAREAPOLINAR Burt R 719.41 PAIN IN JOINT INVOLVING SHOULDER REGION 08/07/2013 JAY ENAMORADO DOA K 719.41 PAIN IN JOINT INVOLVING SHOULDER REGION 08/07/2013 FEI MEDRANO AMARI K 719.41 PAIN IN JOINT INVOLVING SHOULDER REGION 08/07/2013 JAY ENAMORADO DOA K 719.41 PAIN IN JOINT INVOLVING SHOULDER REGION 08/07/2013 JAY ENAMORADO DOA K 719.41 PAIN IN JOINT INVOLVING SHOULDER REGION 09/22/2013 CANDE APOLINAR R MANAGER PROGRESSIVE CARE Ot 477.9 09/22/2013 CANDE APOLINAR R MANAGER PROGRESSIVE CARE Ot 716.91 09/22/2013 CANDE APOLINAR R MANAGER PROGRESSIVE CARE Ot 719.41 09/22/2013 CANDE APOLINAR R MANAGER PROGRESSIVE CARE Ot 840.9 09/22/2013 APOLINAR CASTELLON R MANAGER PROGRESSIVE CARE Ot E928.9 09/22/2013 APOLINAR CASTELLON R MANAGER PROGRESSIVE CARE Ot V57.1 02/09/2014 FEI MEDRANO AMARI K 078.10 VIRAL WARTS UNSPECIFIED 02/09/2014 ENAMORADO DO AMARI K 727.1 BUNION 02/09/2014 ENAMORADO DO, AMARI K V65.42 COUNSELING - SMOKING CESSATION 02/09/2014 ENAMORADO DO AMARI K 078.10 VIRAL WARTS UNSPECIFIED 02/09/2014 ENAMORADO DO, AMARI K 727.1 BUNION 02/09/2014 ENAMORADO DO, AMARI K V65.42 COUNSELING - SMOKING CESSATION 02/09/2014 ENAMORADO DO AMARI K 078.10 VIRAL WARTS UNSPECIFIED 02/09/2014 ENAMORADO DO AMARI K 727.1 BUNION 02/09/2014 ENAMORADO DO, AMARI K V65.42 COUNSELING - SMOKING CESSATION 05/11/2014 ENAMORADO DO AMARI K 466.0 BRONCHITIS, ACUTE 05/11/2014 ENAMORADO DO AMARI K V58.69 HIGH RISK MEDICATION 05/11/2014 ENAMORADO DO AMARI K 466.0 BRONCHITIS, ACUTE 05/11/2014 ENAMORADO DO, AMARI K V58.69 HIGH RISK MEDICATION 08/24/2014 ENAMORADO DO AMARI K 719.47 PAIN IN JOINT INVOLVING ANKLE AND FOOT 11/07/2014 APOLINAR CASTELLON R MANAGER PROGRESSIVE CARE Ot 477.9 11/07/2014 CANDE, APOLINAR R MANAGER PROGRESSIVE CARE Ot 715.31 11/07/2014 CANDE, APOLINAR R MANAGER PROGRESSIVE CARE Ot 719.41 11/07/2014 CANDE, APOLINAR R MANAGER PROGRESSIVE CARE Ot 793.7 11/07/2014 CANDE, APOLINAR R MANAGER PROGRESSIVE CARE Ot 840.9 11/07/2014 MINDI TURNER, IRENA A Ot 845.10 11/07/2014 MINDI TURNER, IRENA A Ot 959.7 11/07/2014 MINDI TURNER, IRENA A Ot E000.8 11/07/2014 MINDI TURNER, IRENA A Ot E001.1 11/07/2014 MINDI TURNER, IRENA A Ot E928.9 11/07/2014 CANDE, APOLINAR R MANAGER PROGRESSIVE CARE Ot 477.9 11/07/2014 CANDE, APOLINAR R MANAGER PROGRESSIVE CARE Ot 715.31 11/07/2014 CANDE, APOLINAR R MANAGER PROGRESSIVE CARE Ot 719.41 11/07/2014 CANDE, APOLINAR R MANAGER PROGRESSIVE CARE Ot 793.7 11/07/2014 CANDE, APOLINAR R MANAGER PROGRESSIVE CARE Ot 840.9 03/11/2015 MUKUL TURNER, JAN Anderson Ot K21.0 GASTRO-ESOPHAGEAL REFLUX DISEASE WITH ES 03/11/2015 MUKUL TURNER, JAN Anderson Ot R19.7 DIARRHEA, UNSPECIFIED 03/16/2015 MUKUL TURNER, JAN Anderson Ot R10.9 03/16/2015 MUKUL TURNER, JAN Anderson Ot R19.7 03/22/2015 DHRUV RUSSELL DO Ot K82.8 OTHER SPECIFIED DISEASES OF GALLBLADDER 04/15/2015 MUKUL TURNER, JAN Anderson Ot R10.9 04/15/2015 MUKUL TURNER, JAN Anderson Ot R19.7 04/15/2015 MUKUL TURNER, JAN S Ot R10.9 04/15/2015 MUKUL TURNER, JAN Anderson Ot R19.7 04/15/2015 DHRUV RUSSELL DO Ot K80.20 04/15/2015 DHRUV RUSSELL DO Ot Z01.812 04/15/2015 DHRUV RUSSELL DO Ot Z11.2 05/05/2016 MUKUL TURNER, JAN Anderson Ot R10.9 UNSPECIFIED ABDOMINAL PAIN 05/05/2016 MUKUL TURNER, JAN Anderson Ot R19.7 DIARRHEA, UNSPECIFIED 05/05/2016 Ot Z01.818 ENCOUNTER FOR OTHER PREPROCEDURAL EXAMIN 05/05/2016 JAN GILMAN MD Ot R10.9 UNSPECIFIED ABDOMINAL PAIN 05/05/2016 JAN GILMAN MD Ot R19.7 DIARRHEA, UNSPECIFIED 05/05/2016 DHRUV RUSSELL DO Ot K80.20 CALCULUS OF GALLBLADDER W/O CHOLECYSTITI 05/05/2016 DHRUV RUSSELL DO Ot Z01.812 ENCOUNTER FOR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
[2018-09-02] MEDS ORDERED: NS IV 500 ML 500 ML IV ONE (12:28)
[2018-09-02] MEDS ORDERED: FAMOTIDINE 20MG/2ML IV (PEPCID) IV STA (12:28)
[2018-09-02] MEDS ORDERED: NS IV 1000 ML 1,000 ML IV SCH ×2 (12:28→13:23)
[2018-09-02] MEDS ORDERED: LIDOCAINE 2% VISCOUS 15 ML UDC PO ONE (12:30)
[2018-09-02] MEDS ORDERED: ONDANSETRON 4 MG/2 ML (SDV) Z0FRAN IVP ONE (12:30)
[2018-09-02] MEDS ORDERED: ANTACID SUSP 30 ML UDC (MYLANTA) PO ONE (12:30)
--- NOTE | 2018-09-02 12:36 | ED Abdominal Pain ---
General Stated Complaint: ABD PAIN Source of Information: Patient, Family (daughter) Exam Limitations: No Limitations History of Present Illness Date Seen by Provider: Sep 02, 2018 Time Seen by Provider: 12:15 Initial Comments Patient presents to the ER by private conveyance with her daughter and chief complaint that for 6 weeks now she's been having loose stools, decreased appetite, nausea with vomiting and a burning sensation in her epigastric region. She has been a couple times to her primary care doctor and has had labs drawn. She had her gallbladder out a year ago and she thinks that it's associated with today's symptoms. She said she were having the same symptoms at that time and that's when they decided her gallbladder needed to come out. She has not taken anything for nausea. 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 She does not take any antacids. She does not take Tylenol or Motrin. She has no other abdominal surgeries other than the cholecystectomy. Dr. Mcclain was her surgeon and Dr. Kruse is her primary care doctor. She has not been back to see her surgeon. She had endoscopy prior to the surgery but does not remember if there is anything found other than her gallbladder. She has not had endoscopy in the past year. Her primary care doctor put her back on her cholestyramine last week and she thought maybe it was helping but it has not helped her in the last 4 days. She was not able to take it or anything else today. She says she tries taking her meds and she gets nauseated and throws them up the last 2 days. She's not been able to eat or drink anything significant for the past 3-4 days according to her daughter. She says it does not matter what she eats if it's meat or vegetables she has diarrhea for the past 6 weeks. She says ham and cheese sandwiches however have been fairly safe. She denies any blood in stool or black tarry appearance. She denies blood in the vomitus. She's not had any fevers or chills. She's had no cough shortness of breath or wheezing. The patient does smoke marijuana daily to help with her nausea vomiting and diarrhea. Allergies and Home Medications Allergies Coded Allergies: Penicillins (Verified Adverse Reaction, Mild, 09/02/18) codeine (Verified Adverse Reaction, Mild, 09/02/18) Home Medications Baclofen 10 Mg Tablet, 10 MG PO TID, (Reported) Pantoprazole Sodium 40 Mg Tablet.dr, 40 MG PO DAILY, (Reported) [Levothyroxine] , 100 MCG PO DAILY, (Reported) [Lisinopril] , 20 MG PO HS, (Reported) Patient Home Medication List Home Medication List Reviewed: Yes Review of Systems Review of Systems Constitutional: No chills; dizziness, malaise, weakness EENTM: No Blurred Vision, No Double Vision Respiratory: Denies Cough, Denies Shortness of Air Cardiovascular: Denies Chest Pain, Denies Edema Gastrointestinal: See HPI; Denies Abdomen Distended; Abdominal Pain; Denies Blood Streaked Stools, Denies Constipated; Diarrhea, Nausea, Poor Appetite, Poor Fluid Intake, Vomiting Genitourinary: Denies Burning, Denies Discharge, Denies Frequency, Denies Flank Pain Musculoskeletal: No back pain, No joint pain Skin: No pruritus, No rash Past Qebtrgq-Miwwis-Dbwitl Hx Patient Social History Alcohol Use: Denies Use Recreational Drug Use: No Smoking Status: Former Smoker Type Used: Cigarettes Recent Foreign Travel: No Contact w/Someone Who Travel: No Recent Hopitalizations: No Immunizations Up To Date Tetanus Booster (TDap): Unknown Seasonal Allergies Seasonal Allergies: No Past Medical History Hypertension Reproductive Disorders: No Female Reproductive Disorders: Denies 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 0.0oz. 78.037296nd; BMI Method:Stated General Appearance: WD/WN, mild distress HEENT: PERRL/EOMI, normal ENT inspection, pharynx normal (oropharynx is dry) Respiratory: no respiratory distress, no accessory muscle use Cardiovascular: normal peripheral pulses, regular rate, rhythm, no edema Peripheral Pulses: 2+ Radial Pulses (R), 2+ Radial Pulses (L) Gastrointestinal: normal bowel sounds (active bowel sounds), soft, tenderness ( epigastric region.), other (negative for Cochran sign, rebound tenderness, mesenteric signs or psoas signs.) Back: normal inspection, no CVA tenderness Neurologic/Psychiatric: alert, oriented x 3, other (anxious affect) Skin: normal color, warm/dry Focused Exam Lactate Level 09/02/18 13:10: Lactic Acid Level 0.88 Lactic Acid Level Laboratory Tests Test 09/02/18 13:10 Lactic Acid Level 0.88 MMOL/L (0.50-2.00) Progress/Results/Core Measures Results/Orders Lab Results Laboratory Tests Test 09/02/18 12:35 09/02/18 13:10 09/02/18 13:33 Range/Units White Blood Count 7.6 4.3-11.0 10^3/uL Red Blood Count 4.66 4.35-5.85 10^6/uL Hemoglobin 13.9 11.5-16.0 G/DL Hematocrit 39 35-52 % Mean Corpuscular Volume 83 80-99 FL Mean Corpuscular Hemoglobin 30 25-34 PG Mean Corpuscular Hemoglobin Concent 36 32-36 G/DL Red Cell Distribution Width 13.3 10.0-14.5 % Platelet Count 328 130-400 10^3/uL Mean Platelet Volume 9.0 7.4-10.4 FL Neutrophils (%) (Auto) 49 42-75 % Lymphocytes (%) (Auto) 38 12-44 % Monocytes (%) (Auto) 12 0-12 % Eosinophils (%) (Auto) 2 0-10 % Basophils (%) (Auto) 0 0-10 % Neutrophils # (Auto) 3.7 1.8-7.8 X 10^3 Lymphocytes # (Auto) 2.9 1.0-4.0 X 10^3 Monocytes # (Auto) 0.9 0.0-1.0 X 10^3 Eosinophils # (Auto) 0.1 0.0-0.3 10^3/uL Basophils # (Auto) 0.0 0.0-0.1 10^3/uL Prothrombin Time 13.2 12.2-14.7 SEC INR Comment 1.0 0.8-1.4 Activated Partial Thromboplast Time 29 24-35 SEC Sodium Level 131 L 135-145 MMOL/L Potassium Level 3.7 3.6-5.0 MMOL/L Chloride Level 96 L 98-107 MMOL/L Carbon Dioxide Level 23 21-32 MMOL/L Anion Gap 12 5-14 MMOL/L Blood Urea Nitrogen 17 7-18 MG/DL Creatinine 1.39 H 0.60-1.30 MG/DL Estimat Glomerular Filtration Rate 40 BUN/Creatinine Ratio 12 Glucose Level 101 70-105 MG/DL Calcium Level 9.4 8.5-10.1 MG/DL Corrected Calcium 9.3 8.5-10.1 MG/DL Magnesium Level 2.2 1.8-2.4 MG/DL Total Bilirubin 0.3 0.1-1.0 MG/DL Aspartate Amino Transf (AST/SGOT) 35 H 5-34 U/L Alanine Aminotransferase (ALT/SGPT) 32 0-55 U/L Alkaline Phosphatase 84 40-136 U/L Total Protein 7.3 6.4-8.2 GM/DL Albumin 4.1 3.2-4.5 GM/DL Lipase 87 H 8-78 U/L Lactic Acid Level 0.88 0.50-2.00 MMOL/L Urine Color YELLOW Urine Clarity CLEAR Urine pH 5 5-9 Urine Specific Arcade 1.015 L 1.016-1.022 Urine Protein NEGATIVE NEGATIVE Urine Glucose (UA) NEGATIVE NEGATIVE Urine Ketones NEGATIVE NEGATIVE Urine Nitrite NEGATIVE NEGATIVE Urine Bilirubin NEGATIVE NEGATIVE Urine Urobilinogen NORMAL NORMAL MG/DL Urine Leukocyte Esterase NEGATIVE NEGATIVE Urine RBC (Auto) NEGATIVE NEGATIVE Urine RBC NONE /HPF Urine WBC RARE /HPF Urine Squamous Epithelial Cells RARE /HPF Urine Crystals NONE /LPF Urine Bacteria NEGATIVE /HPF Urine Casts PRESENT /LPF Urine Hyaline Casts 5-10 H /LPF Urine Mucus NEGATIVE /LPF Urine Culture Indicated NO My Orders Orders - ETTA ABURTO Lidocaine 2% Viscous 15 Ml (Xylocaine Vi (09/02/18 12:30) Antacid Suspension (Mylanta Suspension (09/02/18 12:30) Famotidine Injection (Pepcid Injection) (09/02/18 12:28) Cbc With Automated Diff (09/02/18 12:28) Comprehensive Metabolic Panel (09/02/18 12:28) Lipase (09/02/18 12:28) Magnesium (09/02/18 12:28) Protime With Inr (09/02/18 12:28) Partial Thromboplastin Time (09/02/18 12:28) Ua Culture If Indicated (09/02/18 12:28) Saline Lock/Iv-Start (09/02/18 12:28) Ns Iv 500 Ml (Sodium Chloride 0.9%) (09/02/18 12:28) Ns Iv 1000 Ml (Sodium Chloride 0.9%) (09/02/18 12:28) Ondansetron Injection (Zofran Injectio (09/02/18 12:30) Lactic Acid Analyzer (09/02/18 12:56) Blood Culture (09/02/18 12:56) Saline Lock/Iv-Start (09/02/18 13:23) Ns Iv 1000 Ml (Sodium Chloride 0.9%) (09/02/18 13:23) Ct Abdomen/Pelvis Wo (09/02/18 14:15) Saline Lock/Iv-Start (09/02/18 15:47) Lactated Ringers (Lr 1000 Ml Iv Solution (09/02/18 15:47) General/Regular (09/02/18 Dinner) Medications Given in ED Current Medications Medications Dose Ordered Sig/Wilson Route Start Time Stop Time Status Last Admin Dose Admin Al Hydrox/Mg Hydrox/Simethicone 30 ml ONCE ONCE PO 09/02/18 12:30 09/02/18 12:32 DC 09/02/18 13:12 30 ML Lactated Ringer's 1,000 ml @ 0 mls/hr Q0M ONCE IV 09/02/18 15:47 09/02/18 15:48 DC 09/02/18 15:58 1,000 MLS/HR Lidocaine HCl 15 ml ONCE ONCE PO 09/02/18 12:30 09/02/18 12:32 DC 09/02/18 13:13 15 ML Ondansetron HCl 4 mg ONCE ONCE IVP 09/02/18 12:30 09/02/18 12:32 DC 09/02/18 12:52 4 MG Sodium Chloride 500 ml @ 0 mls/hr Q0M ONCE IV 09/02/18 12:28 09/02/18 12:32 DC 09/02/18 14:37 500 MLS/HR Vital Signs/I&O 09/02/18 12:10 Temp 97.3 Pulse 79 Resp 16 B/P (MAP) 97/63 (74) O2 Delivery Room Air Progress Progress Note #1: Time: 12:37 Progress Note The patient does clinically appear to be modestly dry so we'll give her some IV fluids, Zofran and then a GI cocktail. We will check a lipase as well as basic labs again for evidence of significant derangement or infection. If her belly pain is improved with GI cocktail we will recommend she get set up outpatient for endoscopy. Progress Note #2: Time: 13:37 Progress Note The patient's nausea is gone and her pain did improve with a GI cocktail. Her blood pressure on the other hand but continues to be poor 82/30. She still has a liter and a half of fluids to go and then we will consider using pressors if it does not improve after a 30 mL/kg bolus. Progress Note #3: Time: 15:[address] Ross, General Surgery met with the patient discussed appropriate workup and is going to try and get her set up for early next week for EGD and colonoscopy. Patient reveals that she recently reconnected with her mother who she did not know before and asked her about her medical history and her mother revealed she has ulcerative colitis. Patient's feeling much better. We have offered an observation stay for her dehydration and she would prefer not to stay if she doesn't have to. We'll give her another liter of lactated Ringer's and reevaluate. We'll push some by mouth fluids as well. She's had no retching or vomiting since she's been here. Progress Note #4: Time: 16:45 Progress Note Discussed the case with patient and family and they would prefer to stay overnight for observation and IV fluids and nausea medicine. Diagnostic Imaging Diagonstic Imaging: CT (noncontrast) Comments [facility] [place] NAME: AMADOU MALIK [facility] REC#: [id number] PT STATUS: REG ER : 1965 PHYSICIAN: ETTA ABURTO MD ADMIT DATE: 09/02/18/ER Draft Date of Exam:09/02/18 CT ABDOMEN/PELVIS WO PROCEDURE: CT abdomen and pelvis without contrast. TECHNIQUE: Multiple contiguous axial images were obtained through the abdomen and pelvis without the use of intravenous contrast. Auto Exposure Controls were utilized during the CT exam to meet ALARA standards for radiation dose reduction. INDICATION: Abdominal pain and diarrhea. COMPARISON: No prior studies are available for comparison. FINDINGS: The lung bases are clear. No discrete liver mass is identified. The gallbladder appears to be surgically absent. No biliary ductal dilatation is seen. The pancreas and spleen are unremarkable. No adrenal mass is identified. No renal calculi or hydronephrosis is seen. Aorta is calcified but nonaneurysmal. Small and large bowel loops are normal in caliber. There is no obstruction. The appendix is visualized and unremarkable. Imaging through the pelvis demonstrates the bladder to be unremarkable. The uterus is significantly enlarged and has a lobulated contour. This may contain fibroids. Ultrasound would be useful for further evaluation. There is no ascites. No lymphadenopathy is seen. Bony structures are nonacute. IMPRESSION: Uterine enlargement with lobulated contour, perhaps owing to fibroids. Pelvic sonography would be useful for better characterization. No other significant abnormality is identified. Dictated on workstation # [id number] Dict: 09/02/18 1434 Trans: 09/02/18 1440 [id number] Interpreted by: NIR MCKEON MD Electronically signed by: Reviewed: Reviewed by Me Consults : Consulting Physician: UCHE ROSS DO Consults Notes Discussed case, labs, imaging and he will come see the patient in the ER after a scope. Departure Communication (Admissions) Time/Spoke to Admitting Phy: 16:40 Discussed the case with Dr. Fuentes and he agrees with observation and IV fluids and labs in the morning. Impression Primary Impression: Diarrhea Qualified Codes: R19.7 - Diarrhea, unspecified Additional Impression: Nausea alone Disposition: ADMITTED INPATIENT Condition: Stable Admissions Decision to Admit Reason: Admit from ER (General) Decision to Admit/Date: Sep 02, 2018 Time/Decision to Admit Time: 16:40 Departure-Patient Inst. Referrals: RACHEL KRUSE MD (PCP/Family) Primary Care Physician Copy Copies To 1: RACHEL KRUSE MD, TITUS J Sep 02, 2018 12:36
[2018-09-02 12:42] LABS: BASOPHILS % (AUTO) 0 % (0-10); EOSINOPHILS # (AUTO) 0.1 10^3/uL (0.0-0.3); EOSINOPHILS % (AUTO) 2 % (0-10); HEMATOCRIT 39 % (35-52); HEMOGLOBIN 13.9 G/DL (11.5-16.0); LYMPHOCYTES # (AUTO) 2.9 X 10^3 (1.0-4.0); LYMPHOCYTES % (AUTO) 38 % (12-44); MEAN CORPUSCULAR HEMOGLOBIN 30 PG (25-34); MEAN CORPUSCULAR HGB CONC 36 G/DL (32-36); MEAN CORPUSCULAR VOLUME 83 FL (80-99); MONOCYTES # (AUTO) 0.9 X 10^3 (0.0-1.0); MONOCYTES % (AUTO) 12 % (0-12); NEUTROPHILS # (AUTO) 3.7 X 10^3 (1.8-7.8); NEUTROPHILS % (AUTO) 49 % (42-75); PLATELET COUNT 328 10^3/uL (130-400); RED CELL DISTRIBUTION WIDTH 13.3 % (10.0-14.5); WHITE BLOOD COUNT 7.6 10^3/uL (4.3-11.0)
[2018-09-02 12:55] LABS: PROTHROMBIN TIME PATIENT 13.2 SEC (12.2-14.7)
[2018-09-02 13:02] LABS: ALBUMIN 4.1 GM/DL (3.2-4.5); BILIRUBIN,TOTAL 0.3 MG/DL (0.1-1.0); CALCIUM 9.4 MG/DL (8.5-10.1); CREATININE SERUM 1.39 MG/DL (0.60-1.30); MAGNESIUM 2.2 MG/DL (1.8-2.4); POTASSIUM 3.7 MMOL/L (3.6-5.0); TOTAL PROTEIN 7.3 GM/DL (6.4-8.2)
--- NOTE | 2018-09-02 13:33 | NUR ---
URINE COLLECTED VIA CLEAN CATCH.
[2018-09-02 13:40] LABS: BILIRUBIN,URINE NEGATIVE (NEGATIVE); CLARITY,URINE CLEAR; COLOR,URINE YELLOW; GLUCOSE, URINE (UA) NEGATIVE (NEGATIVE); KETONES,URINE NEGATIVE (NEGATIVE); LEUKOCYTE ESTERASE ,URINE NEGATIVE (NEGATIVE); NITRITE,URINE NEGATIVE (NEGATIVE); PH,URINE 5 (5-9); PROTEIN,URINE NEGATIVE (NEGATIVE); UROBILINOGEN,URINE NORMAL (NORMAL)
[2018-09-02] MEDS ORDERED: PANT40TA3 PO (13:50)
[2018-09-02] MEDS ORDERED: FEXO-46 PO (13:51)
[2018-09-02] MEDS ORDERED: CHOL4PAC3 PO (13:52)
[2018-09-02 13:58] LABS: BACTERIA,URINE NEGATIVE /HPF; SQUAMOUS EPITHELIAL CELL,UR RARE /HPF; WBC,URINE RARE /HPF
--- NOTE | 2018-09-02 14:32 | NUR ---
PATIENT BACK FROM CT SCAN. PATIENT AWAKE AND ALERT.
--- NOTE | 2018-09-02 14:41 | Diagnostic Imaging Report ---
PROCEDURE: CT abdomen and pelvis without contrast. TECHNIQUE: Multiple contiguous axial images were obtained through the abdomen and pelvis without the use of intravenous contrast. Auto Exposure Controls were utilized during the CT exam to meet ALARA standards for radiation dose reduction. INDICATION: Abdominal pain and diarrhea. COMPARISON: No prior studies are available for comparison. FINDINGS: The lung bases are clear. No discrete liver mass is identified. The gallbladder appears to be surgically absent. No biliary ductal dilatation is seen. The pancreas and spleen are unremarkable. No adrenal mass is identified. No renal calculi or hydronephrosis is seen. Aorta is calcified but nonaneurysmal. Small and large bowel loops are normal in caliber. There is no obstruction. The appendix is visualized and unremarkable. Imaging through the pelvis demonstrates the bladder to be unremarkable. The uterus is significantly enlarged and has a lobulated contour. This may contain fibroids. Ultrasound would be useful for further evaluation. There is no ascites. No lymphadenopathy is seen. Bony structures are nonacute. IMPRESSION: Uterine enlargement with lobulated contour, perhaps owing to fibroids. Pelvic sonography would be useful for better characterization. No other significant abnormality is identified. Dictated by: Dictated on workstation # [id number]
[2018-09-02] MEDS ORDERED: LACTATED RINGERS 1,000 ML IV ONE (15:47)
--- NOTE | 2018-09-02 16:06 | Consultation ---
History of Present Illness History of Present Illness Patient Consulted On(alicja/time) 09/02/18 16:01 Time Seen by Provider: 15:41 History of Present Illness Surgery asked to consult regarding burning abdominal pain. HPI per ED: Patient presents to the ER by private conveyance with her daughter and chief complaint that for 6 weeks now she's been having loose stools, decreased appetite, nausea with vomiting and a burning sensation in her epigastric region. She has been a couple times to her primary care doctor and has had labs drawn. She had her gallbladder out a year ago and she thinks that it's associated with today's symptoms. She said she were having the same symptoms at that time and that's when they decided her gallbladder needed to come out. She has not taken anything for nausea. She was taking an over-the- counter acid fitness trainer and her primary care put her on pantoprazole which she started about a week ago. She does not take any antacids. She does not take Tylenol or Motrin. She has no other abdominal surgeries other than the cholecystectomy. Dr. Mcclain was her surgeon and Dr. Ayala is her primary care doctor. She has not been back to see her surgeon. She had endoscopy prior to the surgery but does not remember if there is anything found other than her gallbladder. She has not had endoscopy in the past year. Her primary care doctor put her back on her cholestyramine last week and she thought maybe it was helping but it has not helped her in the last 4 days. She was not able to take it or anything else today. She says she tries taking her meds and she gets nauseated and throws them up the last 2 days. She's not been able to eat or drink anything significant for the past 3-4 days according to her daughter. She says it does not matter what she eats if it's meat or vegetables she has diarrhea for the past 6 weeks. She says ham and cheese sandwiches however have been fairly safe. She denies any blood in stool or black tarry appearance. She denies blood in the vomitus. She's not had any fevers or chills. She's had no cough shortness of breath or wheezing. The patient does smoke marijuana daily to help with her nausea vomiting and diarrhea. When I spoke to pt she states she has not had any endoscopies; not for the stomach or colon. She thinks these are the exact same symptoms as before she had her gallbladder out. She describes a study prior to gallbladder surgery which sounds like HIDA scan; I think this is what she and ER physician were confusing as an endoscopy. She's asking for something for nausea, does not want pain meds. Allergies and Home Medications Allergies Coded Allergies: Penicillins (Verified Adverse Reaction, Mild, 09/02/18) codeine (Verified Adverse Reaction, Mild, 09/02/18) Home Medications Baclofen 10 Mg Tablet, 10 MG PO TID, (Reported) Pantoprazole Sodium 40 Mg Tablet.dr, 40 MG PO DAILY, (Reported) [Levothyroxine] , 100 MCG PO DAILY, (Reported) [Lisinopril] , 20 MG PO HS, (Reported) Patient Home Medication List Home Medication List Reviewed: Yes Past Zttgnrx-Zmtpgo-Zwhfcl Hx Patient Social History Alcohol Use: Denies Use Recreational Drug Use: No Smoking Status: Former Smoker Former Smoker, Quit: Jun 04, 2017 Type Used: Cigarettes 2nd Hand Smoke Exposure: No Recent Foreign Travel: No Contact w/Someone Who Travel: No Recent Infectious Disease Expo: No Recent Hopitalizations: No Immunizations Up To Date Tetanus Booster (TDap): Unknown Seasonal Allergies Seasonal Allergies: No Surgeries History of Surgeries: Yes Surgeries: Gallbladder Respiratory History of Respiratory Disorde: No Cardiovascular History of Cardiac Disorders: Yes Cardiac Disorders: Hypertension Neurological History of Neurological Disord: No Reproductive System Hx Reproductive Disorders: No Sexually Transmitted Disease: No HIV/AIDS: No Female Reproductive Disorders: Denies SYSTEM SUPPORT SPECIALIST History: Menopausal Genitourinary History of Genitourinary Disor: No Gastrointestinal History of Gastrointestinal Di: Yes Gastrointestinal Disorders: Chronic Diarrhea, Gall Bladder Disease Musculoskeletal History of Musculoskeletal Dis: No Musculoskeletal Disorders: Arthritis Endocrine History of Endocrine Disorders: Yes Endocrine Disorders: Hypothyroidsim HEENT History of HEENT Disorders: No Loss of Vision: Denies Hearing Impairment: Denies Cancer History of Cancer: No Psychosocial History of Psychiatric Problem: No Integumentary History of Skin or Integumenta: No Blood Transfusions History of Blood Disorders: No Adverse Reaction to a Blood Tr: No Family Medical History Significant Family History: Other Conditions/Hx (Mother has Ulcerative Colitis) Review of Systems-General Constitutional: No chills, No diaphoresis; malaise, weakness, weight loss EENTM: No blurred vision, No mouth pain, No mouth swelling, No epistaxis, No throat swelling Respiratory: No cough, No dyspnea on exertion, No hemoptysis Cardiovascular: No chest pain, No edema, No palpitations Gastrointestinal: abdominal pain, diarrhea, heartburn, nausea; No vomiting Genitourinary: No dysuria, No frequency, No hematuria Musculoskeletal: No joint pain, No joint swelling, No muscle stiffness, No muscle cramps Skin: No change in color, No change in hair/nails Psychiatric/Neurological: Denies Anxiety, Denies Depressed, Denies Seizure, Denies Tremors Other pt denies any abnormal bleeding or bruising Physical Exam-General Problems Physical Exam Vital Signs Vital Signs - First Documented 09/02/18 12:10 Temp 97.3 Pulse 79 Resp 16 B/P (MAP) 97/63 (74) O2 Delivery Room Air Capillary Refill : Less Than 3 Seconds General Appearance: WD/WN, mild distress Eyes: Bilateral Eye PERRL, Bilateral Eye EOMI HEENT: pharynx normal; No scleral icterus (R), No scleral icterus (L), No pale conjunctivae (R), No pale conjunctivae (L) Neck: supple Respiratory: chest non-tender, lungs clear, normal breath sounds, no respiratory distress, no accessory muscle use Cardiovascular: regular rate, rhythm, no edema, no murmur Gastrointestinal: normal bowel sounds, soft, no organomegaly, no pulsatile mass , tenderness (midepigastric) Back: no CVA tenderness, no vertebral tenderness Extremities: normal range of motion, no pedal edema, no calf tenderness, normal capillary refill Neurologic/Psychiatric: computer compositor II-XII nml as tested, no motor/sensory deficits, alert, normal mood/affect, oriented x 3 Skin: normal color, warm/dry Lymphatic: no adenopathy (neck, axilla or groin) Data Review Labs Laboratory Tests 09/02/18 12:35: White Blood Count 7.6, Red Blood Count 4.66, Hemoglobin 13.9, Hematocrit 39, Mean Corpuscular Volume 83, Mean Corpuscular Hemoglobin 30, Mean Corpuscular Hemoglobin Concent 36, Red Cell Distribution Width 13.3, Platelet Count 328, Mean Platelet Volume 9.0, Neutrophils (%) (Auto) 49, Lymphocytes (%) (Auto) 38, Monocytes (%) (Auto) 12, Eosinophils (%) (Auto) 2, Basophils (%) (Auto) 0, Neutrophils # (Auto) 3.7, Lymphocytes # (Auto) 2.9, Monocytes # (Auto) 0.9, Eosinophils # (Auto) 0.1, Basophils # (Auto) 0.0, Prothrombin Time 13.2, INR Comment 1.0, Activated Partial Thromboplast Time 29, Sodium Level 131L, Potassium Level 3.7, Chloride Level 96L, Carbon Dioxide Level 23, Anion Gap 12, Blood Urea Nitrogen 17, Creatinine 1.39H, Estimat Glomerular Filtration Rate 40 , BUN/Creatinine Ratio 12, Glucose Level 101, Calcium Level 9.4, Corrected Calcium 9.3, Magnesium Level 2.2, Total Bilirubin 0.3, Aspartate Amino Transf ( AST/SGOT) 35H, Alanine Aminotransferase (ALT/SGPT) 32, Alkaline Phosphatase 84, Total Protein 7.3, Albumin 4.1, Lipase 87H 09/02/18 13:10: Lactic Acid Level 0.88 09/02/18 13:33: Urine Color YELLOW, Urine Clarity CLEAR, Urine pH 5, Urine Specific [place] 1.015L, Urine Protein NEGATIVE, Urine Glucose (UA) NEGATIVE, Urine Ketones NEGATIVE, Urine Nitrite NEGATIVE, Urine Bilirubin NEGATIVE, Urine Urobilinogen NORMAL, Urine Leukocyte Esterase NEGATIVE, Urine RBC (Auto) NEGATIVE, Urine RBC NONE, Urine WBC RARE, Urine Squamous Epithelial Cells RARE, Urine Crystals NONE , Urine Bacteria NEGATIVE, Urine Casts PRESENT, Urine Hyaline Casts 5-10H, Urine Mucus NEGATIVE, Urine Culture Indicated NO Assessment/Plan Assessment/Plan Assessment/Plan Burning Abdominal pain r/o Gastritis Screening Colonoscopy Pt has similar burning abdominal pain; that she had prior to cholecystectomy. She has never had EGD and is due for screening colonoscopy; in addition, her mother has hx of ulcerative colitis. I offered to do the EGD today but pt wants to wait and do them together. Her main concern was having something for her nausea and to try and control the burning. I discussed with ER doc and he will prescribe Carafate; she can also take Tums or Pepcid. I will have my office call her and arrange for scopes next Sunday. Discussed risks and complications; not limited to pain, bleeding, infection, intestinal perforation and esophageal rupture. All questions answered to her satisfaction. I did offer to send her back to Dr. Morel but she declined. UCHE ROSS DO Sep 02, 2018 16:06
--- NOTE | 2018-09-02 17:04 | NUR ---
WILLYER ORDERED FOR PATIENT PER HER REQUEST AND WILL BE DELIVERED TO ROOM 423.
--- NOTE | 2018-09-02 17:50 | NUR ---
AMADOU MALIK admitted to room 423-1, with an admitting diagnosis of DEHYDRATION, NAUSEA, VOMITING, DIARRHEA on 09/02/18 from ED via , accompanied by STAFF AND GRANDSON. AMADOU MALIK introduced to surroundings, call light, bed controls, phone, TV, temperature control, lights, meal times, smoking policy, visitor policy, side rail policy, bathrooms and showers. Patient Rights given to patient in the handbook. AMADOU MALIK verbalizes understanding that [facility] is not responsible for the loss or damage to any personal effects or valuables that are kept in the patients posession during their hospitalization. AMADOU MALIK verbalizes understanding of Interdisciplinary Patient Education. Patient and/or family were informed about the Rapid Response Team and its purpose.
[2018-09-02] MEDS ORDERED: PROMETHAZINE 25 MG (PHENERGAN) SUPP PR PRN (18:45)
[2018-09-02] MEDS ORDERED: CATHETER FLUSH 10 ML SYR IV PRN (18:45)
[2018-09-02] MEDS ORDERED: LOPERAMIDE 2 MG (IMODIUM) CAP PO PRN (18:45)
[2018-09-02] MEDS: ONDANSETRON 4 MG/2 ML (SDV) Z0FRAN IV PRN (18:48)
[2018-09-02] MEDS: PANTOPRAZOLE 40 MG (PROTONIX) TAB PO SCH (18:50)
[2018-09-02] MEDS: LACTATED RINGERS 1,000 ML IV SCH (18:50)
[2018-09-02 20:23] VITALS: BP 101/67
[2018-09-02] MEDS: LOPERAMIDE 2 MG (IMODIUM) CAP PO PRN (21:22)
[2018-09-02] MEDS: ACETAMINOPHEN 500 MG TAB (TYLENOL) PO PRN (21:37)
[2018-09-03 00:24] VITALS: BP 104/50
[2018-09-03] MEDS: LACTATED RINGERS 1,000 ML IV SCH ×3 (03:34→10:46)
[2018-09-03 04:00] VITALS: BP 93/56
[2018-09-03 06:10] LABS: BASOPHILS % (AUTO) 1 % (0-10); EOSINOPHILS # (AUTO) 0.2 10^3/uL (0.0-0.3); EOSINOPHILS % (AUTO) 3 % (0-10); HEMATOCRIT 31 % (35-52); HEMOGLOBIN 10.6 G/DL (11.5-16.0); LYMPHOCYTES # (AUTO) 2.5 X 10^3 (1.0-4.0); LYMPHOCYTES % (AUTO) 49 % (12-44); MEAN CORPUSCULAR HEMOGLOBIN 29 PG (25-34); MEAN CORPUSCULAR HGB CONC 34 G/DL (32-36); MEAN CORPUSCULAR VOLUME 86 FL (80-99); MEAN PLATELET VOLUME 9.4 FL (7.4-10.4); MONOCYTES # (AUTO) 0.6 X 10^3 (0.0-1.0); MONOCYTES % (AUTO) 12 % (0-12); NEUTROPHILS # (AUTO) 1.8 X 10^3 (1.8-7.8); NEUTROPHILS % (AUTO) 35 % (42-75); PLATELET COUNT 238 10^3/uL (130-400); RED CELL DISTRIBUTION WIDTH 13.1 % (10.0-14.5)
[2018-09-03] MEDS ORDERED: LEVOTHYROXINE 100 MCG (LEVOTHROID) TAB PO SCH (06:30)
[2018-09-03 06:32] LABS: BUN/CREATININE RATIO 12; CALCIUM 8.5 MG/DL (8.5-10.1); CARBON DIOXIDE 21 MMOL/L (21-32); CHLORIDE 110 MMOL/L (98-107); CREATININE SERUM 0.78 MG/DL (0.60-1.30); GFR ESTIMATED > 60; GLUCOSE 81 MG/DL (70-105); POTASSIUM 3.6 MMOL/L (3.6-5.0); SODIUM 141 MMOL/L (135-145)
[2018-09-03 08:00] VITALS: BP 97/51
[2018-09-03] MEDS: PANTOPRAZOLE 40 MG (PROTONIX) TAB PO SCH (08:10)
[2018-09-03] MEDS: ACETAMINOPHEN 500 MG TAB (TYLENOL) PO PRN (08:10)
[2018-09-03] MEDS: LOPERAMIDE 2 MG (IMODIUM) CAP PO PRN (09:09)
[2018-09-03] MEDS ORDERED: FEXO180T84 PO (09:18)
[2018-09-03] MEDS ORDERED: LISI-552 PO (09:18)
[2018-09-03] MEDS ORDERED: LEVO125T6 PO (09:18)
--- NOTE | 2018-09-03 09:22 | NUR ---
SPOKE WITH THE PATIENT ABOUT HER MEDICATIONS, WE WENT OVER THE EXT MED HX AND SHE VERIFIED HOW SHE TAKES THEM. SHE FILLED A ZPAK AND PREDNISONE ON 08-27-18 SHE STATES SHE DID NOT TAKE ANY PREDNISONE SHE TOOK THE FIRST 2 TABS OF THE ZPAK BUT GOT VERY SICK SHORTLY AFTER AND HAS NOT TAKEN ANYMORE. SHE WAS PRESCRIBED ANDRZEJ 180MG DAILY HOWEVER SHE FELT WHEN SHE TOOK THE WHOLE TAB IT MADE HER SICK TO HER STOMACH, SHE HAS BEEN TAKING 1/2 TAB AND SEEMS TO TOLERATE IT WELL.
[2018-09-03 12:00] VITALS: BP 98/53
[2018-09-03] MEDS: ONDANSETRON 4 MG/2 ML (SDV) Z0FRAN IV PRN (13:19)
[2018-09-03] MEDS ORDERED: BACLOFEN 10 MG (LIORESAL) TAB PO PRN (13:45)
--- NOTE | 2018-09-03 13:48 | History & Physical-Hospitalist ---
History of Present Illness HPI/Chief Complaint The patient is a 52-year-old white female presented to the emergency room last night with complaints of persistent diarrhea, nausea and vomiting, dizziness. After workup it was concluded that she was dehydrated and she was admitted for IV fluids. She reports that she had a cholecystectomy done laparoscopically here about 5 years ago. In the immediate period of time thereafter she took Questran for post cholecystectomy diarrhea. This improved and she was able to discontinue the Questran. About 6 weeks ago she began to have diarrhea which seemingly is increasing. Last weekend she began to have nausea and vomiting as well. There has been no blood in the stool. She states that she believes she has lost about 13 pounds over the last 6 weeks. Source: patient Exam Limitations: no limitations Date Seen 09/03/18 Time Seen by a Provider: 13:44 Attending Physician Simon Humphries MD PCP Anushka Ayala MD Referring Physician UCHE ROSS DO Date of Admission Sep 02, 2018 at 17:00 Home Medications & Allergies Home Medications Reviewed patient Home Medication Reconciliation performed by pharmacy medication reconciliations research instrumentation technician and/or nursing. Patients Allergies have been reviewed. Allergies Allergies Coded Allergies Penicillins (Verified Adverse Reaction, Mild, 09/02/18) codeine (Verified Adverse Reaction, Mild, 09/02/18) Past Jdlcegf-Dyrpbj-Cdfyhe Hx Past Med/Social Hx: Reviewed Nursing Past Med/Soc Hx Patient Social History Alcohol Use: Denies Use Recreational Drug Use: No Smoking Status: Former Smoker Former Smoker, Quit: Jun 04, 2017 Type Used: Cigarettes 2nd Hand Smoke Exposure: No Recent Foreign Travel: No Contact w/other who traveled: No Recent Hopitalizations: No Recent Infectious Disease Expo: No Immunizations Up To Date Tetanus Booster (TDap): Unknown Seasonal Allergies Seasonal Allergies: No Past Medical History Surgeries: Gallbladder Cardiac: Hypertension Reproductive: No Sexually Transmitted Disease: No HIV/AIDS: No Female Reproductive Disorders: Denies Menopausal Gastrointestinal: Chronic Diarrhea, Gall Bladder Disease Musculoskeletal: Arthritis Endocrine: Hypothyroidsim Loss of Vision: Denies Hearing Impairment: Denies History of Blood Disorders: No Adverse Reaction to Blood Mixon: No Family History Colon cancer Ulcerative colitis 19 MOTHER Other Conditions/Hx (Mother has Ulcerative Colitis) Review of Systems Constitutional: see HPI EENTM: no symptoms reported Respiratory: no symptoms reported Cardiovascular: no symptoms reported Gastrointestinal: see HPI Genitourinary: no symptoms reported Musculoskeletal: muscle weakness Skin: no symptoms reported Psychiatric/Neurological: No Symptoms Reported Physical Exam Physical Exam Vital Signs Vital Signs - First Documented 09/02/18 09/02/18 12:10 17:24 Temp 97.3 Pulse 79 Resp 16 B/P (MAP) 97/63 (74) Pulse Ox 100 O2 Delivery Room Air Capillary Refill : Less Than 3 Seconds Height, Weight, BMI Height: 5'6.00" Weight: 170lbs. 0.0oz. [id number]; BMI Method:Stated General Appearance: No Apparent Distress, WD/WN Eyes: Bilateral Eye Normal Inspection HEENT: Normal ENT Inspection Neck: Full Range of Motion, Normal Inspection, Non Tender, Supple Respiratory: Chest Non Tender, Lungs Clear, Normal Breath Sounds, No Accessory Muscle Use, No Respiratory Distress Gastrointestinal: Abnormal Bowel Sounds (abdomen is nontender to palpation. Bowel sounds are somewhat hypoactive) Back: Normal Inspection Extremity: Normal Capillary Refill, Normal Inspection, Normal Range of Motion, Non Tender, No Calf Tenderness, No Pedal Edema Neurologic/Psychiatric: Alert, Oriented x3, No Motor/Sensory Deficits, Normal Mood/Affect Skin: Normal Color, Warm/Dry Lymphatic: No Adenopathy Results Results/Procedures Labs Laboratory Tests 09/02/18 12:35 09/03/18 05:37 Patient resulted labs reviewed. Assessment/Plan Admission Diagnosis Chronic diarrhea Admission Status: Observation Assessment and Plan It is noted that her blood pressure is relatively low despite rehydration. Her hemoglobin has fallen from 13-[address] Ross seen her and has scheduled upper and lower endoscopy for next Sunday. Clinical Quality Measures DVT/VTE Risk/Contraindication: Risk Factor Score Per Nursin RFS Level Per Nursing on Admit: 2=Moderate SIMON HUMPHRIES MD Sep 03, 2018 13:47
[2018-09-03] MEDS ORDERED: ONDA8TAB13 PO (14:01)
--- NOTE | 2018-09-03 14:03 | Discharge Inst-Simple/Standard ---
Discharge Inst-Standard Discharge Medications New, Converted or Re-Newed RX: Transmitted to Pharmacy Patient Instructions/Follow Up Plan of Care/Instructions/FU: Use Questran 2 or even 3 times daily to quell diarrhea. Lots of liquids. It would be useful to take at least half of these with a sports drink such as Gatorade. Zofran if needed for nausea and vomiting. Keep appointment for endoscopy next week with Dr. Matthias ZAMBRANO Activity as Tolerated: Yes Discharge Diet: Eat Small Frequent Meals LEELA HUMPHIRES MD Sep 03, 2018 14:03
[2018-09-04] MEDS ORDERED: LEVOTHYROXINE 125 MCG (LEVOTHROID) TABLET PO SCH (06:30)
[2018-09-04] MEDS ORDERED: lisINopril 20 MG (PRINIVIL) TABLET PO SCH (09:00)
[2018-09-04] MEDS ORDERED: PANTOPRAZOLE 40 MG (PROTONIX) TAB PO SCH (09:00)
== END 2018-09-03 15:25 | disposition home or self-care (01) ==
LOC: EDUNIT# 11:26 → ER 11:27 → 4TH 17:00
PROVIDERS: ADMIT Internal Medicine; ATTEND Internal Medicine
DX: E86.0 Dehydration (principal); K52.9 Noninfective gastroenteritis and colitis, unspecified; R11.0 Nausea; I10 Essential (primary) hypertension; E03.9 Hypothyroidism, unspecified; Z87.891 Personal history of nicotine dependence; Z88.1 Allergy status to other antibiotic agents; Z88.5 Allergy status to narcotic agent; Z83.79 Family history of other diseases of the digestive system
CPT/HCPCS: 36415; 74176; 80048; 80053; 81000; 83605; 83690; 83735; 85025; 85610; 85730; 87040

== ENCOUNTER 2018-09-05 12:59 | Outpatient (CLI) | payer BC ==
[~2018-09-05] VITALS: Ht 167.6 cm; Wt 77.1 kg
[~2018-09-05 12:59] MED LIST changes: +CHOL4PAC3 PO; +FEXO-46 PO; +FEXO180T84 PO; +LEVO125T6 PO; +LISI-552 PO; +ONDA8TAB13 PO; +PANT40TA3 PO
== END 2018-09-05 13:18 | disposition home or self-care (01) ==
LOC: PREOP 12:59
PROVIDERS: ATTEND Surgery
DX: Z01.818 Encounter for other preprocedural examination (principal)

== ENCOUNTER 2018-09-09 10:44 | Day surgery (SDC) | payer BC ==
[~2018-09-09] VITALS: Ht 167.6 cm; Wt 77.1 kg
[2018-09-09] MEDS ORDERED: LACTATED RINGERS 1,000 ML IV STA (10:57)
[2018-09-09] MEDS ORDERED: HURRICAINE EXT TUBE (BENZOCAINE) XX PRN (11:00)
[2018-09-09] MEDS ORDERED: LACTATED RINGERS 1,000 ML IV ONE (11:10)
[2018-09-09] MEDS ORDERED: MIDAZOLAM 2 MG/2 ML (VERSED) VIAL ONE (11:11)
[2018-09-09] MEDS ORDERED: PROPOFOL INJECTION 50 ML IV ONE (11:11)
--- NOTE | 2018-09-09 11:17 | Progress Note-Pre Operative ---
Pre-Operative Progress Note H&P Reviewed The H&P was reviewed, patient examined and no changes noted. Time Seen by Provider: 11:14 Date H&P Reviewed: Sep 09, 2018 Time H&P Reviewed: 11:15 Pre-Operative Diagnosis: N/V, loose stools, epigastric pain, Gastritis, Screening colon UCHE ROSS DO Sep 09, 2018 11:17
[2018-09-09 11:36] VITALS: BP 128/81
--- NOTE | 2018-09-09 12:07 | Progress Note-Post Operative ---
Post-Operative Progess Note Surgeon (s)/Health Information Managers (s) Surgeon UCHE ROSS DO Health Information Managers: none Pre-Operative Diagnosis N/V, loose stools, epigastric pain, Gastritis, Screening colon Post-Operative Diagnosis Gastritis Hiatal hernia Internal hemorrhoids Procedure & Operative Findings Date of Procedure 09/09/18 Procedure Performed/Findings EGD with bx Colonoscopy Anesthesia Type IV sedation by STUNT DOUBLE Estimated Blood Loss Estimated blood loss (mL): scant Specimens/Packing Specimens Removed antral bx body of stomach bx UCHE ROSS DO Sep 09, 2018 12:07
--- NOTE | 2018-09-09 12:08 | Endoscopy Discharge Instruct ---
Endo Procedure/Findings Findings 1.: Gastritis 2.: Hiatal Hernia 3.: Internal Hemorrhoids Discharge Instructions - Activity: You might feel a little sleepy until tomorrow. This is due to the medicine you received to relax you. Until tomorrow, you should: NOT drive a car, operate machinery or power tools. NOT drink any alcoholic beverages. NOT make any important decisions or sign importortant papers. Do not return to work until tomorrow, unless otherwise instructed. Resume previous activities tomorrow. Diet: Start by taking liquids. If you tolerate liquids, advance to solid food. make an appointment for one week Notify Physician - If you experience excessive bleeding, unusual abdominal pain, fever, or chest pain, contact your doctor immediately. Follow-Up: - I have received and understand the above instructions and will call my doctor if I have any further questions. Patient Signature Date Nurse Signature Other (Relationship) UCHE ROSS DO Sep 09, 2018 12:08
--- NOTE | 2018-09-09 12:19 | Anesthesia-General Post-Op ---
MAC Patient Condition Mental Status/LOC: Same as Preop Cardiovascular: Satisfactory Nausea/Vomiting: Absent Respiratory: Satisfactory Pain: Controlled Complications: Absent Post Op Complications Complications None Follow Up Care/Instructions Patient Instructions None needed. Anesthesiology Discharge Order Discharge Order Patient is doing well, no complaints, stable vital signs, no apparent adverse anesthesia problems. No complications reported per nursing. ALEXANDER GIVENS CRNA Sep 09, 2018 12:19
[2018-09-09 12:35] VITALS: BP 132/89
[2018-09-09 13:05] VITALS: BP 139/88
[2018-09-09 13:10] VITALS: BP 139/88
--- NOTE | 2018-09-10 00:13 | OPERATIVE REPORT ---
DATE OF SERVICE: PREOPERATIVE DIAGNOSES: Nausea, vomiting, epigastric pain, loose stools, screening colonoscopy. POSTOPERATIVE DIAGNOSES: 1. Gastritis. 2. Hiatal hernia. 3. Internal hemorrhoids. PROCEDURES: 1. EGD with biopsy. 2. Colonoscopy. SURGEON: Nelson Miguel DO. PULL OUT OPERATOR: None. ANESTHESIA: IV sedation by PRACTICE BILLING ASSOCIATE. SPECIMEN: Biopsies one from the antrum and one from the body of the stomach. BLOOD LOSS: Scant. FLUIDS: Per anesthesia. POSTOPERATIVE CONDITION: Stable. INDICATION FOR PROCEDURE: The patient is a 52-year-old female who has been having some epigastric pain, nausea, vomiting sounds like gastritis and she had some loose stools and needs a screening colonoscopy. FINDINGS: The patient had some gastritis and a hiatal hernia and then she had some internal hemorrhoids seen. No other obvious pathology. PROCEDURE NOTE: After informed consent was obtained, the patient was brought to the endoscopy suite, placed in the left lateral decubitus position. She was administered IV sedation by the PRACTICE BILLING ASSOCIATE who then monitored her vitals the entire time, heart rate, blood pressure and pulse ox and was first started with the EGD, pushed the scope down the mouth through the esophagus into the stomach. Upon entering the stomach noted some gastritis, took a picture. Pushed in the duodenum. Duodenum looked fine. Backed out and took a biopsy of the antrum then did a biopsy of the body of the stomach, retroflexed the scope, saw a small hiatal hernia, took a picture of this and pulled back into the esophagus. GE junction looked great. Nothing else seen up in the esophagus and then at this point, suction out the stomach and pulled the scope out the mouth. Switched scopes, switched gloves and went down below and started the colonoscopy. Pushed the scope in all the way into 150 cm, able to get to the cecum, took a picture of appendiceal orifice, noted the ileocecal valve and then slowly withdrew the scope insufflating to look circumferentially at the prabhakar looking at the cecum, up the ascending colon to the hepatic flexure, then down the transverse colon, the splenic flexure, into the descending colon, into the sigmoid, into the rectum, retroflexed the rectal vault, saw some internal hemorrhoids, took a picture of this and then removed the scope. The patient tolerated the procedure. She was recovered in the endoscopy suite. Job ID: [id number] DocumentID: [id number] Dictated Date: 09/09/2018 13:35:47 Product Safety Compliance Leader Date: 09/10/2018 00:12:24 Dictated By: DO ANJELICA NEWTON
== END 2018-09-09 13:10 | disposition home or self-care (01) ==
LOC: ENDO 10:44
PROVIDERS: ATTEND Surgery
DX: Z12.11 Encounter for screening for malignant neoplasm of colon (principal); K29.70 Gastritis, unspecified, without bleeding; K44.9 Diaphragmatic hernia without obstruction or gangrene; K64.8 Other hemorrhoids; K31.89 Other diseases of stomach and duodenum; I10 Essential (primary) hypertension; Z87.891 Personal history of nicotine dependence; Z79.899 Other long term (current) drug therapy
CPT/HCPCS: 88305

== ENCOUNTER 2019-01-20 11:19 | Emergency (ER) | payer BC ==
[~2019-01-20] VITALS: Ht 167.6 cm; Wt 80.7 kg
[~2019-01-20 11:19] MED LIST changes: -OMEP20CA12 PO; +OMEP20CA13 PO
[2019-01-20] MEDS ORDERED: LACTATED RINGERS 1,000 ML IV SCH (11:30)
[2019-01-20 11:51] LABS: BASOPHILS % (AUTO) 0 % (0-10); EOSINOPHILS # (AUTO) 0.1 10^3/uL (0.0-0.3); EOSINOPHILS % (AUTO) 1 % (0-10); HEMATOCRIT 39 % (35-52); LYMPHOCYTES # (AUTO) 1.9 X 10^3 (1.0-4.0); LYMPHOCYTES % (AUTO) 25 % (12-44); MEAN CORPUSCULAR HEMOGLOBIN 30 PG (25-34); MEAN CORPUSCULAR HGB CONC 34 G/DL (32-36); MEAN CORPUSCULAR VOLUME 89 FL (80-99); MEAN PLATELET VOLUME 8.6 FL (7.4-10.4); MONOCYTES # (AUTO) 0.6 X 10^3 (0.0-1.0); MONOCYTES % (AUTO) 8 % (0-12); NEUTROPHILS # (AUTO) 4.9 X 10^3 (1.8-7.8); NEUTROPHILS % (AUTO) 65 % (42-75); PLATELET COUNT 295 10^3/uL (130-400); RED CELL DISTRIBUTION WIDTH 13.6 % (10.0-14.5); WHITE BLOOD COUNT 7.6 10^3/uL (4.3-11.0)
--- NOTE | 2019-01-20 11:52 | ED General ---
General Stated Complaint: WEAKNESS;DIZZINESS;FAINTING Source of Information: Patient Exam Limitations: No Limitations History of Present Illness Date Seen by Provider: Jan 20, 2019 Time Seen by Provider: 11:48 Initial Comments To ER per private vehicle with reports of lightheadedness dizziness and general weakness. This began this morning. She states that she did not sleep very well at all last night, unsure why. She awakened this morning feeling like she had just gone to sleep. 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 She had some nausea and headache rated a 4 out of 10. Reports "mental fog". States that she has had bad allergies--runny nose and sore throat. No fever or chills. No cough or shortness of breath. No chest pain. She is on lisinopril for blood pressure control. She states that a friend of hers took her blood pressure at home and it was "low". The final reading they had before coming here was 103 systolic and the previous 2 readings before that were lower Timing/Duration: 4-6 Hours Severity: Moderate Associated Systoms: Headaches, Malaise, Nausea/Vomiting, Weakness Allergies and Home Medications Allergies Coded Allergies: Penicillins (Verified Adverse Reaction, Mild, 09/02/18) codeine (Verified Adverse Reaction, Mild, 09/02/18) Home Medications Baclofen 10 Mg Tablet, 10 MG PO TID PRN for MUSCLE SPASMS, (Reported) Cholestyramine/Aspartame 4 Gm Powd.pack, 4 GM PO DAILY, (Reported) Fexofenadine HCl 180 Mg Tablet, 90 MG PO DAILY, (Reported) TAKES 1/2 (180MG) TABLET Levothyroxine Sodium 125 Mcg Tablet, 125 MCG PO DAILY, (Reported) Lisinopril 20 Mg Tablet, 20 MG PO DAILY, (Reported) Ondansetron 8 Mg Tab.rapdis, 8 MG PO 4 times a day Prescribed by: LEELA HUMPHRIES on 09/03/18 1401 Pantoprazole Sodium 40 Mg Tablet.dr, 40 MG PO DAILY, (Reported) Patient Home Medication List Home Medication List Reviewed: Yes Review of Systems Review of Systems Constitutional: see HPI EENTM: see HPI, nose congestion, throat pain Respiratory: no symptoms reported Cardiovascular: no symptoms reported Genitourinary: no symptoms reported Musculoskeletal: no symptoms reported Skin: no symptoms reported Psychiatric/Neurological: No Symptoms Reported Hematologic/Lymphatic: No Symptoms Reported Past Fchpimy-Nzvjxe-Xsckud Hx Patient Social History Type Used: Cigarettes Former Smoker, Quit: Jun 04, 2017 2nd Hand Smoke Exposure: No Recent Foreign Travel: No Contact w/Someone Who Travel: No Recent Hopitalizations: No Immunizations Up To Date Tetanus Booster (TDap): Unknown Seasonal Allergies Seasonal Allergies: No Past Medical History Surgeries: Yes Gallbladder Respiratory: No Cardiac: Yes Hypertension Neurological: No Reproductive Disorders: No Female Reproductive Disorders: 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 Sexually Transmitted Disease: No HIV/AIDS: No Genitourinary: No Gastrointestinal: Yes (n&v) Chronic Diarrhea Musculoskeletal: No Arthritis Endocrine: Yes Hypothyroidsim HEENT: No Loss of Vision: Denies Hearing Impairment: Denies Cancer: No Psychosocial: No Integumentary: No Blood Disorders: No Adverse Reaction/Blood Tranf: No Family Medical History Colon cancer Ulcerative colitis 19 MOTHER Other Conditions/Hx Physical Exam Vital Signs Vital Signs - First Documented 01/20/19 11:36 Temp 97.0 Pulse 79 Resp 18 B/P (MAP) 114/70 (85) Pulse Ox 99 O2 Delivery Room Air Capillary Refill : Height, Weight, BMI Height: 5'6.00" Weight: 170lbs. 0.0oz. [id number]; 27.4 BMI Method:Stated General Appearance: No Apparent Distress, WD/WN, Other (she is ambulatory to room 7 without abnormal gait or use of assistive device) Eyes: Bilateral Eye Normal Inspection, Bilateral Eye PERRL, Bilateral Eye EOMI HEENT: PERRL/EOMI, TMs Normal, Other (cobblestoning of the oropharynx) Respiratory: No Accessory Muscle Use, No Respiratory Distress Cardiovascular: Regular Rate, Rhythm, Normal Peripheral Pulses Gastrointestinal: Normal Bowel Sounds, Non Tender, Soft Extremity: Normal Capillary Refill, Normal Inspection Neurologic/Psychiatric: Alert, Oriented x3 Skin: Normal Color, Warm/Dry Comments Blood pressure is normal at 113/78. Heart rate normal. Oxygen 100% room air. Progress/Results/Core Measures Suspected Sepsis SIRS Temperature: Pulse: Respiratory Rate: Laboratory Tests 01/20/19 11:43: White Blood Count 7.6 Blood Pressure / Mean: Laboratory Tests 01/20/19 11:43: Creatinine 1.28, Platelet Count 295, Total Bilirubin 0.3 Results/Orders Lab Results Laboratory Tests Test 01/20/19 11:43 01/20/19 13:20 Range/Units White Blood Count 7.6 4.3-11.0 10^3/uL Red Blood Count 4.34 L 4.35-5.85 10^6/uL Hemoglobin 13.0 11.5-16.0 G/DL Hematocrit 39 35-52 % Mean Corpuscular Volume 89 80-99 FL Mean Corpuscular Hemoglobin 30 25-34 PG Mean Corpuscular Hemoglobin Concent 34 32-36 G/DL Red Cell Distribution Width 13.6 10.0-14.5 % Platelet Count 295 130-400 10^3/uL Mean Platelet Volume 8.6 7.4-10.4 FL Neutrophils (%) (Auto) 65 42-75 % Lymphocytes (%) (Auto) 25 12-44 % Monocytes (%) (Auto) 8 0-12 % Eosinophils (%) (Auto) 1 0-10 % Basophils (%) (Auto) 0 0-10 % Neutrophils # (Auto) 4.9 1.8-7.8 X 10^3 Lymphocytes # (Auto) 1.9 1.0-4.0 X 10^3 Monocytes # (Auto) 0.6 0.0-1.0 X 10^3 Eosinophils # (Auto) 0.1 0.0-0.3 10^3/uL Basophils # (Auto) 0.0 0.0-0.1 10^3/uL Sodium Level 135 135-145 MMOL/L Potassium Level 4.3 3.6-5.0 MMOL/L Chloride Level 103 98-107 MMOL/L Carbon Dioxide Level 23 21-32 MMOL/L Anion Gap 9 5-14 MMOL/L Blood Urea Nitrogen 16 7-18 MG/DL Creatinine 1.28 0.60-1.30 MG/DL Estimat Glomerular Filtration Rate 44 BUN/Creatinine Ratio 13 Glucose Level 99 70-105 MG/DL Calcium Level 9.5 8.5-10.1 MG/DL Corrected Calcium 9.4 8.5-10.1 MG/DL Total Bilirubin 0.3 0.1-1.0 MG/DL Aspartate Amino Transf (AST/SGOT) 21 5-34 U/L Alanine Aminotransferase (ALT/SGPT) 15 0-55 U/L Alkaline Phosphatase 84 40-136 U/L Troponin I < 0.028 <0.028 NG/ML Total Protein 7.2 6.4-8.2 GM/DL Albumin 4.1 3.2-4.5 GM/DL Thyroid Stimulating Hormone (TSH) 0.61 0.35-4.94 UIU/ML Free Thyroxine 1.32 0.70-1.48 NG/DL Urine Color YELLOW Urine Clarity CLEAR Urine pH 6 5-9 Urine Specific [place] 1.010 L 1.016-1.022 Urine Protein NEGATIVE NEGATIVE Urine Glucose (UA) NEGATIVE NEGATIVE Urine Ketones NEGATIVE NEGATIVE Urine Nitrite NEGATIVE NEGATIVE Urine Bilirubin NEGATIVE NEGATIVE Urine Urobilinogen NORMAL NORMAL MG/DL Urine Leukocyte Esterase NEGATIVE NEGATIVE Urine RBC (Auto) NEGATIVE NEGATIVE Urine RBC NONE /HPF Urine WBC 0-2 /HPF Urine Squamous Epithelial Cells 2-5 /HPF Urine Crystals NONE /LPF Urine Bacteria TRACE /HPF Urine Casts NONE /LPF Urine Mucus NEGATIVE /LPF Urine Culture Indicated NO Urine Opiates Screen NEGATIVE NEGATIVE Urine Oxycodone Screen NEGATIVE NEGATIVE Urine Methadone Screen NEGATIVE NEGATIVE Urine Propoxyphene Screen NEGATIVE NEGATIVE Urine Barbiturates Screen NEGATIVE NEGATIVE Ur Tricyclic Antidepressants Screen NEGATIVE NEGATIVE Urine Phencyclidine Screen NEGATIVE NEGATIVE Urine Amphetamines Screen NEGATIVE NEGATIVE Urine Methamphetamines Screen NEGATIVE NEGATIVE Urine Benzodiazepines Screen NEGATIVE NEGATIVE Urine Cocaine Screen NEGATIVE NEGATIVE Urine Cannabinoids Screen POSITIVE H NEGATIVE My Orders Orders - ELAINE MERCADO APRN Cbc With Automated Diff (01/20/19 11:26) Comprehensive Metabolic Panel (01/20/19 11:26) Troponin I (01/20/19 11:26) Ekg Tracing (01/20/19 11:26) Ua Culture If Indicated (01/20/19 11:26) Drug Screen Stat (Urine) (01/20/19 11:26) Thyroid Stimulating Hormone (01/20/19 11:26) Free T4 (Free Thyroxine) (01/20/19 11:26) Ed Iv/Invasive Line Start (01/20/19 11:26) Lactated Ringers (Lr 1000 Ml Iv Solution (01/20/19 11:30) Acetaminophen Tablet/Caplet (Tylenol T (01/20/19 12:00) Medications Given in ED Current Medications Medications Dose Ordered Sig/Wilson Route Start Time Stop Time Status Last Admin Dose Admin Acetaminophen 650 mg ONCE ONCE PO 01/20/19 12:00 01/20/19 12:01 DC 01/20/19 11:58 650 MG Vital Signs/I&O 01/20/19 11:36 Temp 97.0 Pulse 79 Resp 18 B/P (MAP) 114/70 (85) Pulse Ox 99 O2 Delivery Room Air Capillary Refill : Departure Impression Primary Impression: weakness and malaise Disposition: HOME, SELF-CARE Condition: Stable Departure-Patient Inst. Decision time for Depature: 13:51 Referrals: RACHEL KRUSE MD (PCP/Family) Primary Care Physician Patient Instructions: Syncope (Fainting) (DC) Add. Discharge Instructions: 1. Return to ER for any concerns 2. Follow-up with your doctor next week 2. 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
[2019-01-20] MEDS ORDERED: ACETAMINOPHEN 325 MG TABLET PO ONE (12:00)
[2019-01-20 12:11] LABS: ALANINE AMINOTRANSFERASE 15 U/L (0-55); ALBUMIN 4.1 GM/DL (3.2-4.5); ALKALINE PHOSPHATASE 84 U/L (40-136); BILIRUBIN,TOTAL 0.3 MG/DL (0.1-1.0); BUN/CREATININE RATIO 13; CALCIUM 9.5 MG/DL (8.5-10.1); CARBON DIOXIDE 23 MMOL/L (21-32); CHLORIDE 103 MMOL/L (98-107); CREATININE SERUM 1.28 MG/DL (0.60-1.30); GFR ESTIMATED 44; GLUCOSE 99 MG/DL (70-105); POTASSIUM 4.3 MMOL/L (3.6-5.0); SODIUM 135 MMOL/L (135-145); TOTAL PROTEIN 7.2 GM/DL (6.4-8.2)
[2019-01-20 12:32] LABS: FREE T4 (FREE THYROXINE) 1.32 NG/DL (0.70-1.48)
[2019-01-20 13:33] LABS: BILIRUBIN,URINE NEGATIVE (NEGATIVE); CLARITY,URINE CLEAR; COLOR,URINE YELLOW; GLUCOSE, URINE (UA) NEGATIVE (NEGATIVE); KETONES,URINE NEGATIVE (NEGATIVE); LEUKOCYTE ESTERASE ,URINE NEGATIVE (NEGATIVE); NITRITE,URINE NEGATIVE (NEGATIVE); PH,URINE 6 (5-9); PROTEIN,URINE NEGATIVE (NEGATIVE); UROBILINOGEN,URINE NORMAL (NORMAL)
[2019-01-20 13:40] LABS: BACTERIA,URINE TRACE /HPF; WBC,URINE 0-2 /HPF
[2019-01-20 13:46] LABS: AMPHETAMINE SCREEN, URINE NEGATIVE (NEGATIVE); BARBITURATE SCREEN URINE NEGATIVE (NEGATIVE); BENZODIAZEPINES SCREEN URINE NEGATIVE (NEGATIVE); CANNABINOID SCREEN, URINE POSITIVE (NEGATIVE); COCAINE SCREEN URINE NEGATIVE (NEGATIVE); METHADONE STAT NEGATIVE (NEGATIVE); METHAMPHETAMINE SCREEN URINE S NEGATIVE (NEGATIVE); OPIATE SCREEN URINE NEGATIVE (NEGATIVE); OXYCODONE STAT NEGATIVE (NEGATIVE); PROPOXYPHENE STAT NEGATIVE (NEGATIVE); TRICYCLIC ANTIDEPRESSANTS SCRE NEGATIVE (NEGATIVE)
[2019-01-20 14:05] VITALS: BP 103/63
== END 2019-01-20 14:07 | disposition home or self-care (01) ==
LOC: EDUNIT# 11:19 → ER 11:20
DX: R53.81 Other malaise (principal); R53.1 Weakness; I10 Essential (primary) hypertension; E03.9 Hypothyroidism, unspecified; Z88.0 Allergy status to penicillin; Z88.5 Allergy status to narcotic agent; Z87.891 Personal history of nicotine dependence; Z80.0 Family history of malignant neoplasm of digestive organs
CPT/HCPCS: 36415; 80053; 80306; 81000; 84439; 84443; 84484; 85025; 93005